=== PATIENT | female | born 1950 | race Caucasian/White ===

== ENCOUNTER → 2023-06-16 | Outpatient (CLI) | payer MEDICARE, SELFPAY ==
--- NOTE | 2023-06-16 10:36 | ECHODONC_ITS ---
Reason For Study: Breast CA Procedure This was a 2D Doppler, Color Flow transthoracic echocardiogram. Myocardial strain analysis was performed in this exam to aid in the assessment of cardiac function. Exam performed in department. Left Ventricle Normal LV size. Left ventricular systolic function is normal. The estimated ejection fraction is 60 %. Stage 1 diastolic dysfunction. No regional wall motion abnormalities noted. Right Ventricle Normal RV size. Normal systolic function. Atria Normal left atrium. Normal right atrium. Mitral Valve Normal mitral valve. Tricuspid Valve Normal tricuspid valve. Mild tricuspid valve insufficiency. Pulmonary artery systolic pressure is 23 mmHg. Aortic Valve Normal aortic valve. Pulmonic Valve Normal pulmonic valve. Great Vessels Normal aortic root. The pulmonary is not well visualized. Normal inferior vena cava. Pericardium/Pleural No pericardial effusion. MMode/2D Measurements & Calculations LVIDd: 3.3 cm IVSd: 0.97 cm Ao root diam: 2.8 cm LVIDs: 2.0 cm LVPWd: 0.87 cm RVDd: 3.5 cm FS: 39.1 % LAV(MOD-bp): 39.0 ml LVAd ap4: 21.6 cm2 LVAd ap2: 23.0 cm2 LAV(MOD-bp) Indexed: 20.1 ml/m2 LVLd ap4: 7.4 cm LVLd ap2: 7.9 cm LAV(MOD-sp2): 36.0 ml EDV(MOD-sp4): 52.2 ml EDV(MOD-sp2): 55.5 ml LAV(MOD-sp4): 40.5 ml EDV(sp4-el): 53.5 ml EDV(sp2-el): 56.8 ml LVAs ap4: 12.0 cm2 LVAs ap2: 11.9 cm2 LVLs ap4: 6.0 cm LVLs ap2: 6.9 cm ESV(MOD-sp4): 19.7 ml ESV(MOD-sp2): 17.6 ml ESV(sp4-el): 20.1 ml ESV(sp2-el): 17.4 ml EF(MOD-sp4): 62.2 % EF(MOD-sp2): 68.3 % EF(sp4-el): 62.5 % SV(MOD-sp4): 32.5 ml SV(MOD-sp2): 37.9 ml SV(sp4-el): 33.4 ml LA dimension(2D): 3.5 cm LA A4 area: 15.6 cm2 RA A4 area: 11.8 cm2 TAPSE: 1.7 cm Time Measurements MV dec time: 0.18 sec Doppler Measurements & Calculations MV E max carlyle: 95.1 cm/sec Lat Peak E' Carlyle: 11.4 cm/sec Med Peak E' Carlyle: 7.1 cm/sec MV A max carlyle: 99.7 cm/sec E/E' lat: 8.3 E/E' med: 13.4 MV E/A: 0.95 MV dec slope: 541.3 cm/sec2 Ao V2 max: 143.8 cm/sec LV V1 max: 96.8 cm/sec Ao max P.3 mmHg LV V1 max P.7 mmHg PA V2 max: 99.9 cm/sec TR max carlyle: 218.2 cm/sec TR max P.1 mmHg ECHO/ONC Echo Complete Interpretation Summary Normal LV size. Left ventricular systolic function is normal. The estimated ejection fraction is 60 %. Stage 1 diastolic dysfunction. The global longitudinal strain is normal. The global longitudinal strain = -22 % (normal). Ordering Physician: Denzel Sharma Referring Physician: Robby Elizabeth Performed By: Daphne Coon RDCS
== END | disposition home or self-care (01) ==
LOC: CVS 10:34
PROVIDERS: PCP Family Medicine; Referring Provider Internal Medicine Medical Oncology; Visit Provider Internal Medicine Medical Oncology
DX: Z01.818 Encounter for other preprocedural examination (principal)
CPT/HCPCS: 93306; 93356

== ENCOUNTER 2023-06-24 05:44 | Day surgery (SDC) | payer MEDICARE, SELFPAY ==
--- OUTSIDE RECORDS SUMMARY | 2023-06-24 05:47 | XMS RPT_ITS | CCD ---
Author Name Unknown Address [id number] [place] [address] Organization [facility] Care Team Providers Care Brick Paver Name Role Phone Jayda Elizabeth Unavailable Unavailable Jayda Elizabeth Unavailable Unavailable Jayda Elizabeth Unavailable Unavailable Unavailable Jayda Elizabeth MD Primary Care Provider Glenn, Dr. Jayda Toney Primary Care Unavailab tanner Elizabeth, Dr. Jayda Toney Attending Unavailab tanner Elizabeth, Dr. Jayda Toney Primary Care Unavailab tanner Elizabeth, Dr. Jayda Toney Attending Unavailab tanner Elizabeth, Dr. Jayda Toney Primary Care Unavailab tanner Elizabeth, Dr. Jayda Toney Attending Unavailab tanner Elizabeth, Dr. Jayda Toney Primary Care Unavailab tanner Elizabeth, Dr. Jayda Toney Attending Unavailab tanner Elizabeth, Dr. Jayda Toney Attending Unavailab tanner Elizabeth, Dr. Jayda Toney Primary Care Unavailab tanner Elizabeth, Dr. Jayda Toney Primary Care Unavailab tanner Reis, Dr. Anna Toney Attending Unavailsharonda Elizabeth, Dr. Jayda Toney Primary Care Unavailab tanner Reis, Dr. Anna Toney Attending Unavailsharonda Elizabeth, Dr. Jayda Toney Primary Care Unavailab tanner Reis, Dr. Anna Toney Attending Unavailsharonda Elizabeth, Dr. Jayda Toney Primary Care Unavailab tanner Reis, Dr. Anna Toney Attending Unavailsharonda Elizabeth, Dr. Jayda Toney Primary Care Unavailab tanner Elizabeth, Dr. Jayda Toney Attending Unavailab tanner Elizabeth, Dr. Jayda Toney Primary Care Unavailab tanner Elizabeth, Dr. Jayda Toney Attending Unavailab tanner Elizabeth, Dr. Jayda Toney Primary Care Unavailab le Glenn, Dr. Jayda Toney Attending Unavailab le Glenn, Dr. Jayda Toney Primary Care Unavailab le Glenn, Dr. Jayda Toney Attending Unavailab le Glenn, Dr. Jayda Toney Primary Care Unavailab le Glenn, Dr. Jayda Toney Attending Unavailab le Glenn, Dr. Jayda Toney Primary Care Unavailab le Glenn, Dr. Jayda Toney Attending Unavailab le Glenn, Dr. Jayda Toney Primary Care Unavailab le Glenn, Dr. Jayda Toney Attending Unavailab le Glenn, Dr. Jayda Toney Primary Care Unavailab le Glenn, Dr. Jayda oTney Attending Unavailab le GLENN, JAYDA Primary Care Unavailable DERRICK, ANNA L Referring Unavailable DERRICK, ANNA L Admitting Unavailable DERRICK, ANNA L Attending Unavailable GLENN, JAYDA Primary Care Unavailable DERRICK, ANNA L Referring Unavailable DILCIA, LENKA Attending Unavailable GLENN, JAYDA Primary Care Unavailable SELF, SELF Referring Unavailable GLENN, JAYDA Primary Care Unavailable DILCIA, LENKA Attending Unavailable DERRICK, ANNA L Attending Unavailable GLENN, JAYDA Primary Care Unavailable DERRICK, ANNA L Referring Unavailable GLENN, JAYDA Primary Care Unavailable DERRICK, ANNA L Referring Unavailable DERRICK, ANNA L Attending Unavailable DERRICK, ANNA L Referring Unavailable DERRICK, ANNA L Attending Unavailable GLENN, JAYDA Primary Care Unavailable DERRICK, ANNA L Referring Unavailable DILCIA, LENKA Attending Unavailable GLENN, JAYDA Primary Care Unavailable Glenn, Dr. Jayda Toney Attending Unavailab le Glenn, Dr. Jayda Toney Primary Care Unavailab le Glenn, Dr. Jayda Toney Referring Unavailab le Glenn, Dr. Jayda Toney Attending Unavailab le Glenn, Dr. Jayda Toney Primary Care Unavailab le Glenn, Dr. Jayda Toney Referring Unavailab le Glenn, Dr. Jayda Toney Attending Unavailab le Glenn, Dr. Jayda Toney Primary Care Unavailab le Glenn, Dr. Jayda Toney Referring Unavailab Jayda Fair MD Primary Care Provider Adin Pascual MD, Jenny Rooney Unavailable JAYDA ELIZABETH Attending Unavailable JAYDA ELIZABETH Primary Care Unavailable JAYDA ELIZABETH Attending Unavailable JAYDA ELIZABETH Primary Care Unavailable Jayda Elizabeth MD Primary Care Provider GLENN, JAYDA L Referring Unavailable GLENN, JAYAD L Primary Care Unavailable GLENN, JAYDA L Referring Unavailable GLENN, JAYDA L Primary Care Unavailable GLENN, JAYDA L Referring Unavailable GLENN, JAYDA L Primary Care Unavailable NAHEED MAXWELL Referring Unavailable GLENN, JAYDA L Primary Care Unavailable GLENN, JAYDA L Primary Care Unavailable NAHEED MAXWELL B Attending Unavailable NAHEED MAXWELL B Referring Unavailable GLENN, JAYDA L Primary Care Unavailable NAHEED MAXWELL B Attending Unavailable GLENN, JAYDA L Primary Care Unavailable GLENN, JAYDA L Referring Unavailable GLENN, JAYDA L Primary Care Unavailable ROSA NAHEED B Referring Unavailable GLENN, JAYDA L Primary Care Unavailable ROSA NAHEED B Referring Unavailable GLENN, JAYDA L Primary Care Unavailable ROSA NAHEED B Admitting Unavailable NAHEED MAXWELL Attending Unavailable GLENN, JAYDA L Primary Care Unavailable ROSA NAHEED B Referring Unavailable GLENN, JAYDA L Primary Care Unavailable Allergies Allergy Classification Reported Allergen(s) Allergy Type Date of Onset Reaction(s) Facility Adhesive Tape (11 sources) Adhesive Tape Substance Allergy [facility] Work Phone: Opioid Agonists (11 sources) Codeine; Translations: [codeine] Drug Allergy Vomiting [facility] Work Phone: (20 sources) Codeine; Translations: [codeine] Drug Allergy 3 Vomiting, Nausea and Vomiting, Other [facility] (20 sources) Adhesive Tape Allergy to substance (finding) [facility] Work Phone: (2 sources) Skin Adhesives Propensity to adverse reactions to drug 3 Blisters [facility] (19 sources) Latex; Translations: [LATEX] Propensity to adverse reactions to drug 3 Other [facility] (4 sources) *Adhesive Tape Propensity to adverse reactions 3 [facility] (15 sources) Adhesive Tape-Silicones; Translations: [ADHESIVE TAPE-SILICONES] Propensity to adverse reactions 3 Unknown, Rash [facility] Medications Current Medications Medication Drug Class(es) Dates Sig (Normalized) Sig (Original) acetaminophen 325 mg oral tablet (20 sources) Start: 05-11-2023 take 1 tablet by mouth every four hours as needed acetaminophen (Tylenol) tablet 650 mg Completed/Discontinued Medications Medication Drug Class(es) Dates Sig (Normalized) Sig (Original) ascorbic acid 1000 mg extended release oral tablet (20 sources) Vitamin C Vitamin C ER 100 0 MG TBCR Quantity: 0 Refills: 0 Ordered: 10-Mar-2021 DO Active Problems Active Problems Problem Classification Problem Date Documented Da te Episodic/Chronic Cancer of breast (20 sources) Malignant neoplasm of lower-outer quadrant of female breast; Translations: [Malignant neoplasm of lower-outer quadrant of right female breast] Onset: 04-14-2023 04-20-2023 Chronic Deficiency and other anemia (1 source) Anemia; Translations: [Anemia, unspecified] Episodic Deficiency and other anemia (20 sources) Iron deficiency anemia; Translations: [Iron deficiency anemia, unspecified] Episodic Diabetes mellitus with complications (20 sources) Polyneuropathy due to type 2 diabetes mellitus; Translations: [Diabetes with neurological manifestations, type II or unspecified type, not stated as uncontrolled] Onset: 08-07-2022 08-07-2022 Chronic Diabetes mellitus without complication (20 sources) Type 2 diabetes mellitus; Translations: [Diabetes mellitus without mention of complication, type II or unspecified type, not stated as uncontrolled] Onset: 08-07-2022 08-07-2022 Chronic Disorders of lipid metabolism (20 sources) Hyperlipidemia; Translations: [Other and unspecified hyperlipidemia] Onset: 08-07-2022 03-01-2023 Chronic Essential hypertension (20 sources) Benign essential hypertension; Translations: [Benign essential hypertension] Onset: 08-07-2022 08-07-2022 Chronic Genitourinary symptoms and ill-defined conditions (20 sources) Urinary incontinence; Translations: [Urinary incontinence, unspecified] Onset: 08-07-2022 08-07-2022 Chronic Genitourinary symptoms and ill-defined conditions (20 sources) Dysuria; Translations: [Dysuria] Episodic Immunizations and screening for infectious disease (20 sources) Patient encounter status; Translations: [Other specified vaccination] Onset: 03-01-2023 03-01-2023 Episodic Joint disorders and dislocations; trauma-related (5 sources) Tear of medial meniscus of knee; Translations: [Other tear of medial meniscus, current injury, right knee, initial encounter] Onset: 06-22-2022 Episodic Menopausal disorders (20 sources) Menopausal syndrome; Translations: [Symptomatic menopausal or female climacteric states] Onset: 10-13-2021 Chronic Nonmalignant breast conditions (14 sources) Lump in right breast; Translations: [Unspecified lump in the right breast, unspecified quadrant] Onset: 03-23-2023 03-23-2023 Episodic Osteoarthritis (20 sources) Osteoarthritis of right knee joint; Translations: [Osteoarthrosis, localized, primary, lower leg] Onset: 06-22-2022 Chronic Other gastrointestinal disorders (5 sources) Chronic constipation; Translations: [Constipation, unspecified] Episodic Other lower respiratory disease (20 sources) Dyspnea; Translations: [Shortness of breath] Episodic Other nutritional; endocrine; and metabolic disorders (7 sources) Obesity; Translations: [Obesity, unspecified] Chronic Other nutritional; endocrine; and metabolic disorders (20 sources) Severe obesity; Translations: [Morbid obesity] Onset: 08-07-2022 08-07-2022 Chronic Other nutritional; endocrine; and metabolic disorders (2 sources) Morbid (severe) obesity due to excess calories; Translations: [Morbid (severe) obesity due to excess calories (CMS/HCC)] Onset: 08-07-2022 Chronic Other nutritional; endocrine; and metabolic disorders (2 sources) Body mass index (BMI) 35.0-35.9, adult; Translations: [Body mass index (BMI) 35.0-35.9, adult] Onset: 08-07-2022 Chronic Other screening for suspected conditions (not mental disorders or infectious disease) (14 sources) Encounter for screening mammogram for malignant neoplasm of breast; Translations: [Encounter for screening for osteoporosis] Onset: 10-13-2021 Episodic Other skin disorders (20 sources) Actinic keratosis; Translations: [Actinic keratosis] Episodic Residual codes; unclassified (3 sources) History of arthroscopy of knee joint; Translations: [Other specified postprocedural states] Episodic Residual codes; unclassified (2 sources) Other specified postprocedural states; Translations: [Other specified postprocedural states] Onset: 11-08-2022 Episodic Residual codes; unclassified (6 sources) Estrogen receptor negative status [ER-]; Translations: [Estrogen receptor negative status (ER-)] Onset: 04-14-2023 Episodic Spondylosis; intervertebral disc disorders; other back problems (20 sources) Chronic low back pain; Translations: [Lumbago] Episodic Past or Other Problems Problem Classification Problem Date Documented Da te Episodic/Chronic Abdominal hernia (20 sources) Hiatal hernia; Translations: [Diaphragmatic hernia without mention of obstruction or gangrene] Onset: 09-06-2022 09-07-2022 Episodic Nonspecific chest pain (15 sources) Chest pain; Translations: [Chest pain, unspecified] Onset: 08-07-2022 Resolved: 09-06-2022 09-06-2022 Episodic Other non-traumatic joint disorders (20 sources) Pain in left knee; Translations: [Chronic pain of left knee] Onset: 08-07-2022 Resolved: 09-07-2022 09-07-2022 Episodic Other non-traumatic joint disorders (15 sources) Tenderness on medial joint line of knee; Translations: [Pain in joint, lower leg] Onset: 08-07-2022 08-07-2022 Episodic Other non-traumatic joint disorders (7 sources) Pain in right knee; Translations: [Pain in joint, lower leg] Onset: 06-22-2022 Episodic Other non-traumatic joint disorders (1 source) Effusion, right knee; Translations: [Effusion, right knee] Onset: 02-23-2022 Episodic Other skin disorders (17 sources) Dystrophia unguium; Translations: [Other specified diseases of nail] Onset: 09-07-2022 09-07-2022 Episodic Unclassified (11 sources) Onset: 09-06-2022 09-06-2022 Results Test Name Value Interpretation Reference Range Facil ity Vital Signs Date Time Vital Sign Value Performing Clinician Facility 06-02-2023 11:[id number] Body height 161.3 cm Naheed Maxwell DO Work Phone: [facility] 06-02-2023 11:28-050 Body mass index (BMI) [Ratio] 34.18 kg/m2 Naheed Maxwell DO Work Phone: [facility] 06-02-2023 [id number] Body weight 88.91 kg Naheed Maxwell DO Work Phone: [facility] 06-02-2023 11:28-0500 Respiratory rate 16 /min Naheed Maxwell DO Work Phone: [facility] 05-11-2023 15:50-0500 Body temperature 98.1 [degF] Naheed Maxwell DO Work Phone: [facility] 05-11-2023 15:50-0500 Diastolic blood pressure 85 mm[Hg] Naheed Maxwell DO Work Phone: [facility] 05-11-2023 15:50-0500 Heart rate 76 /min Naheed Maxwell DO Work Phone: [facility] 05-11-2023 15:50-0500 Respiratory rate 16 /min Naheed Maxwell DO Work Phone: [facility] 05-11-2023 15:50-0500 SaO2% (BldA) [Mass fraction] 97 % Naheed Maxwell DO Work Phone: [facility] 05-11-2023 15:50-0500 Systolic blood pressure 158 mm[Hg] Naheed Maxwell DO Work Phone: [facility] 05-11-2023 08:43-0500 Body height 160 cm Naheed Maxwell DO Work Phone: [facility] 05-11-2023 08:43-0500 Body mass index (BMI) [Ratio] 34.54 kg/m2 Naheed Maxwell DO Work Phone: [facility] 05-11-2023 08:43-0500 Body weight 88.45 kg Naheed Maxwell DO Work Phone: [facility] 03-01-2023 13:24-0400 Body height 162.3 cm Jayda Elizabeth MD [facility] 03-01-2023 13:24-0400 Body mass index (BMI) [Ratio] 34.27 kg/m2 Jayda Elizabeth MD [facility] 03-01-2023 13:24-0400 Body weight 90.27 kg Jayda Elizabeth MD [facility] 03-01-2023 13:24-0400 Diastolic blood pressure 80 mm[Hg] Jayda Elizabeth MD [facility] 03-01-2023 13:24-0400 Heart rate 72 /min Jayda Elizabeth MD [facility] 03-01-2023 13:24-0400 SaO2% (BldA) [Mass fraction] 98 % Jayda Elizabeth MD [facility] 03-01-2023 13:24-0400 Systolic blood pressure 122 mm[Hg] Jayda Elizabeth MD [facility] 11-08-2022 13:07-0400 Body height 161.3 cm Lenka Ha STUDENT FINANCE SPECIALIST-CALL CENTER SUPPORT REPRESENTATIVE Work Phone: [facility] 11-08-2022 13:07-0400 Body mass index (BMI) [Ratio] 34.18 kg/m2 Lenka Ha STUDENT FINANCE SPECIALIST-CALL CENTER SUPPORT REPRESENTATIVE Work Phone: [facility] 11-08-2022 13:07-0400 Body temperature 98.1 [degF] Lenka Joneser STUDENT FINANCE SPECIALIST-CALL CENTER SUPPORT REPRESENTATIVE Work Phone: [facility] 11-08-2022 13:07-0400 Body weight 88.91 kg Lenkaosito Joneser STUDENT FINANCE SPECIALIST-CALL CENTER SUPPORT REPRESENTATIVE Work Phone: [facility] 09-28-2022 13:12-0400 Body height 161.3 cm Lenka Ha STUDENT FINANCE SPECIALIST-CALL CENTER SUPPORT REPRESENTATIVE Work Phone: [facility] 09-28-2022 13:12-0400 Body mass index (BMI) [Ratio] 34.18 kg/m2 Lenka Dilcia STUDENT FINANCE SPECIALIST-CALL CENTER SUPPORT REPRESENTATIVE Work Phone: [facility] 09-28-2022 13:12-0400 Body temperature 98.01 [degF] Lenka Joneser STUDENT FINANCE SPECIALIST-CALL CENTER SUPPORT REPRESENTATIVE Work Phone: [facility] 09-28-2022 13:12-0400 Body weight 88.91 kg Lenka Ha STUDENT FINANCE SPECIALIST-CALL CENTER SUPPORT REPRESENTATIVE Work Phone: [facility] 09-15-2022 10:35-0400 Diastolic blood pressure 63 mm[Hg] Anna Reis MD Work Phone: [facility] 09-15-2022 10:35-0400 Heart rate 70 /min Anna Reis MD Work Phone: [facility] 09-15-2022 10:35-0400 Respiratory rate 18 /min Anna Reis MD Work Phone: [facility] 09-15-2022 10:35-0400 SaO2% (BldA) [Mass fraction] 95 % Anna Reis MD Work Phone: [facility] 09-15-2022 10:35-0400 Systolic blood pressure 120 mm[Hg] Anna Reis MD Work Phone: [facility] 09-15-2022 09:35-0400 Body temperature 97 [degF] Anna Reis MD Work Phone: [facility] 09-15-2022 06:59-0400 Body height 161.3 cm Anna Reis MD Work Phone: [facility] 09-15-2022 06:59-0400 Body mass index (BMI) [Ratio] 34.18 kg/m2 Anna Reis MD Work Phone: [facility] 09-15-2022 06:59-0400 Body weight 88.91 kg Anna Reis MD Work Phone: [facility] 09-13-2022 12:58-0400 Body height 162.6 cm Lenka Ha APRN-FRANNY Work Phone: [facility] 09-13-2022 12:58-0400 Body mass index (BMI) [Ratio] 33.81 kg/m2 Lenka Ha APRN-CALL CENTER SUPPORT REPRESENTATIVE Work Phone: [employer] [facility] 09-13-2022 12:58-0400 Body temperature 97.81 [degF] Lenka Ha APRN-CALL CENTER SUPPORT REPRESENTATIVE Work Phone: [facility] 09-13-2022 12:58-0400 Body weight 89.36 kg Lenka Ha STUDENT FINANCE SPECIALIST-CALL CENTER SUPPORT REPRESENTATIVE Work Phone: [facility] 09-13-2022 12:58-0400 Diastolic blood pressure 70 mm[Hg] Lenka Ha STUDENT FINANCE SPECIALIST-CALL CENTER SUPPORT REPRESENTATIVE Work Phone: [facility] 09-13-2022 12:58-0400 Systolic blood pressure 120 mm[Hg] Lenka Ha STUDENT FINANCE SPECIALIST-CALL CENTER SUPPORT REPRESENTATIVE Work Phone: [facility] 08-26-2022 15:08-0500 Body height 163.2 cm Jayda L Glenn Work Phone: [facility] Work Phone: 08-26-2022 15:08-0500 Body mass index (BMI) [Ratio] 33.63 kg/m2 Jayda L Glenn Work Phone: [facility] Work Phone: 08-26-2022 15:08-0500 Body surface area Derived from formula 1.95 m2 Jayda L Glenn Work Phone: [facility] Work Phone: 08-26-2022 15:08-0500 Body weight 89.56 kg Jayda L Glenn Work Phone: [facility] Work Phone: 08-26-2022 15:08-0500 Diastolic blood pressure 74 mm[Hg] Jayda L Glenn Work Phone: [facility] Work Phone: 08-26-2022 15:08-0500 Heart rate 70 /min Jayda L Glenn Work Phone: [facility] Work Phone: 08-26-2022 15:08-0500 Systolic blood pressure 120 mm[Hg] Jayda L Glenn Work Phone: [facility] Work Phone: 08-04-2022 10:36-0500 Body height 162.6 cm Anna Reis MD Work Phone: [facility] 08-04-2022 10:36-0500 Body mass index (BMI) [Ratio] 34.16 kg/m2 Anna Reis MD Work Phone: [facility] 08-04-2022 10:36-0500 Body temperature 97.59 [degF] Anna Reis MD Work Phone: [facility] 08-04-2022 10:36-0500 Body weight 90.27 kg Anna Reis MD Work Phone: [facility] 06-08-2022 11:12-0500 Body height 163.2 cm Jayda L Glenn Work Phone: [facility] Work Phone: 06-08-2022 11:12-0500 Body mass index (BMI) [Ratio] 33.96 kg/m2 Jayda L Glenn Work Phone: [facility] Work Phone: 06-08-2022 11:12-0500 Body surface area Derived from formula 1.96 m2 Jayda L Glenn Work Phone: [facility] Work Phone: 06-08-2022 11:12-0500 Body weight 90.44 kg Jayda L Glenn Work Phone: [facility] Work Phone: 06-08-2022 11:12-0500 Diastolic blood pressure 84 mm[Hg] Jayda L Glenn Work Phone: [facility] Work Phone: 06-08-2022 11:12-0500 Heart rate 80 /min Jayda L Glenn Work Phone: [facility] Work Phone: 06-08-2022 11:12-0500 Systolic blood pressure 120 mm[Hg] Jayda L Glenn Work Phone: [facility] Work Phone: 03-09-2022 16:03-0400 Body height 163.2 cm Jayda L Glenn Work Phone: [facility] Work Phone: 03-09-2022 16:03-0400 Body mass index (BMI) [Ratio] 35.05 kg/m2 Jayda L Glenn Work Phone: [facility] Work Phone: 03-09-2022 16:03-0400 Body surface area Derived from formula 1.99 m2 Jayda L Glenn Work Phone: [facility] Work Phone: 03-09-2022 16:03-0400 Body weight 93.35 kg Jayda L Glenn Work Phone: [facility] Work Phone: 03-09-2022 16:03-0400 Diastolic blood pressure 88 mm[Hg] Jayda L Glenn Work Phone: [facility] Work Phone: 03-09-2022 16:03-0400 Heart rate 78 /min Jayda L Glenn Work Phone: [facility] Work Phone: 03-09-2022 16:03-0400 Systolic blood pressure 120 mm[Hg] Jayda L Glenn Work Phone: [facility] Work Phone: 02-23-2022 11:16-0400 Body height 163.2 cm Jayda L Glenn Work Phone: [facility] Work Phone: 02-23-2022 11:16-0400 Body mass index (BMI) [Ratio] 35.13 kg/m2 Jayda L Glenn Work Phone: [facility] Work Phone: 02-23-2022 11:16-0400 Body surface area Derived from formula 1.99 m2 Jayda L Glenn Work Phone: [facility] Work Phone: 02-23-2022 11:16-0400 Body weight 93.57 kg Jayda L Glenn Work Phone: [facility] Work Phone: 02-23-2022 11:16-0400 Diastolic blood pressure 88 mm[Hg] Jayda L Glenn Work Phone: [facility] Work Phone: 02-23-2022 11:16-0400 Heart rate 63 /min Jayda L Glenn Work Phone: [facility] Work Phone: 02-23-2022 11:16-0400 Systolic blood pressure 136 mm[Hg] Jayda L Glenn Work Phone: [facility] Work Phone: 05-04-2021 11:34-0500 Body height 163.2 cm Jayda L Glenn Work Phone: [facility] Work Phone: 05-04-2021 11:34-0500 Body mass index (BMI) [Ratio] 34.91 kg/m2 Jayda L Glenn Work Phone: [facility] Work Phone: 05-04-2021 11:34-0500 Body surface area Derived from formula 1.98 m2 Jayda L Glenn Work Phone: [facility] Work Phone: 05-04-2021 11:34-0500 Body weight 92.98 kg Jayda L Glenn Work Phone: [facility] Work Phone: 05-04-2021 11:34-0500 Diastolic blood pressure 80 mm[Hg] Jayda L Glenn Work Phone: [facility] Work Phone: 05-04-2021 11:34-0500 Heart rate 72 /min Jayda L Glenn Work Phone: [facility] Work Phone: 05-04-2021 11:34-0500 Systolic blood pressure 128 mm[Hg] Jayda L Glenn Work Phone: [facility] Work Phone: 04-24-2021 08:34-0400 Body height 163.19 cm Jayda L Glenn Work Phone: [facility] Work Phone: 04-24-2021 08:34-0400 Body mass index (BMI) [Ratio] 35.25 kg/m2 Jayda L Glenn Work Phone: [facility] Work Phone: 04-24-2021 08:34-0400 Body surface area Derived from formula 1.99 m2 Jayda L Glenn Work Phone: [facility] Work Phone: 04-24-2021 08:34-0400 Body weight 93.9 kg Jayda L Glenn Work Phone: [facility] Work Phone: 04-24-2021 08:34-0400 Diastolic blood pressure 78 mm[Hg] Jayda L Glenn Work Phone: [facility] Work Phone: 04-24-2021 08:34-0400 Heart rate 74 /min Jayda L Glenn Work Phone: [facility] Work Phone: 04-24-2021 08:34-0400 Systolic blood pressure 124 mm[Hg] Jayda L Glenn Work Phone: -[facility] Work Phone: 04-02-2021 14:24-0400 Body height 163.19 cm Jayda L Glenn Work Phone: -[facility] Work Phone: 04-02-2021 14:24-0400 Body mass index (BMI) [Ratio] 34.57 kg/m2 Jayda L Glenn Work Phone: -[facility] Work Phone: 04-02-2021 14:24-0400 Body surface area Derived from formula 1.97 m2 Jayda L Glenn Work Phone: -[facility] Work Phone: 04-02-2021 14:24-0400 Body weight 92.08 kg Jayda L Glenn Work Phone: [facility] Work Phone: 04-02-2021 14:24-0400 Diastolic blood pressure 84 mm[Hg] Jayda L Glenn Work Phone: -[facility] Work Phone: 04-02-2021 14:24-0400 Heart rate 70 /min Jayda L Glenn Work Phone: [facility] Work Phone: 04-02-2021 14:24-0400 Systolic blood pressure 130 mm[Hg] Jayda L Glenn Work Phone: [facility] Work Phone: 03-10-2021 13:44-0400 Body height 163.19 cm Jayda L Glenn Work Phone: [facility] Work Phone: 03-10-2021 13:44-0400 Body mass index (BMI) [Ratio] 34.48 kg/m2 Jayda L Glenn Work Phone: [facility] Work Phone: 03-10-2021 13:44-0400 Body surface area Derived from formula 1.97 m2 Jayda L Glenn Work Phone: [facility] Work Phone: 03-10-2021 13:44-0400 Body weight 91.83 kg Jayda L Glenn Work Phone: [facility] Work Phone: 03-10-2021 13:44-0400 Diastolic blood pressure 80 mm[Hg] Jayda L Glenn Work Phone: [facility] Work Phone: 03-10-2021 13:44-0400 Heart rate 72 /min Jayda L Glenn Work Phone: [facility] Work Phone: 03-10-2021 13:44-0400 Systolic blood pressure 134 mm[Hg] Jayda L Glenn Work Phone: [facility] Work Phone: 12-30-2020 13:43-0400 Body height 163.2 cm Jayda L Glenn Work Phone: [facility] Work Phone: 12-30-2020 13:43-0400 Body mass index (BMI) [Ratio] 34.93 kg/m2 Jayda L Glenn Work Phone: [facility] Work Phone: 12-30-2020 13:43-0400 Body surface area Derived from formula 1.98 m2 Jayda L Glenn Work Phone: [facility] Work Phone: 12-30-2020 13:43-0400 Body weight 93.03 kg Jayda L Glenn Work Phone: [facility] Work Phone: 12-30-2020 13:43-0400 Diastolic blood pressure 80 mm[Hg] Jayda Pierceer Work Phone: [facility] Work Phone: 12-30-2020 13:43-0400 Heart rate 82 /min Jaydatoño Pierceer Work Phone: [facility] Work Phone: 12-30-2020 13:43-0400 Systolic blood pressure 120 mm[Hg] Jayda Pierceer Work Phone: [facility] Work Phone: 10-27-2020 10:16-0400 Body height 163.2 cm Jayda L Glenn [facility] Work Phone: 10-27-2020 10:16-0400 Body mass index (BMI) [Ratio] 35.61 kg/m2 Jayda Pierceer Work Phone: [facility] Work Phone: 10-27-2020 10:16-0400 Body surface area Derived from formula 2 m2 Jayda Pierceer Work Phone: [facility] Work Phone: 10-27-2020 10:16-0400 Body temperature 97.3 [degF] Jayda Pierceer Work Phone: [facility] Work Phone: 10-27-2020 10:16-0400 Body weight 94.84 kg Jayda L Glenn Work Phone: [facility] Work Phone: 10-27-2020 10:16-0400 Diastolic blood pressure 88 mm[Hg] Jayda L Glenn Work Phone: [facility] Work Phone: 10-27-2020 10:16-0400 Heart rate 96 /min Jayda Elizabeth Work Phone: [facility] Work Phone: 10-27-2020 10:16-0400 Systolic blood pressure 130 mm[Hg] Jayda Elizabeth Work Phone: [facility] Work Phone: Encounters Encounter Date Encounter Type Care Provider Facility Start: 06-02-2023 End: 06-02-2023 ambulatory NAHEED MAXWELL [facility] Start: 06-02-2023 End: 06-02-2023 Postop follow up visit related to original px Naheed Maxwell DO Work Phone: [facility] [place], [place] Procedures Date Procedure Procedure Detail Performing Clinician Start: 05-11-2023 DISCHARGE PATIENT NAHEED MAXWELL Start: 05-11-2023 FOLLOW UP WITH PROVIDER NAHEED MAXWELL Start: 05-11-2023 ADULT DISCHARGE DIET NAHEED MAXWELL Start: 05-11-2023 DISCHARGE ACTIVITY NAHEED MAXWELL Start: 05-11-2023 DISCHARGE INSTRUCTIONS NAHEED MAXWELL Start: 05-11-2023 NOTIFY PROVIDER (DO NOT PROMPT FOR PARAMETERS) NAHEED MAXWELL Start: 05-11-2023 BI RAD BREAST EXAM SPECIMEN NAHEED GROVES ON Start: 05-11-2023 SURGICAL PATHOLOGY EXAM NAHEED MAXWELL Start: 05-11-2023 Radiological examination surgical specimen Naheed Maxwell DO Work Phone: Start: 05-11-2023 NM INJECTION ONLY FOR SENTINEL NODE BIOPSY NO SCAN PERFORMED NAHEED MAXWELL Start: 05-11-2023 Glucose [Mass/volume] in Serum or Plasma NAHEED MAXWELL Start: 05-11-2023 PLACE IN OUTPATIENT/HOSPITAL AMBULATORY SURGERY NAHEED MAXWELL Start: 05-11-2023 PULSE OXIMETRY, SPOT NAHEED MAXWELL Start: 05-11-2023 Inj radioactive tracer for id of sentinel node Naheed Maxwell DO Work Phone: Start: 05-11-2023 Glucose quantitative blood xcpt reagent strip Naheed Maxwell DO Work Phone: Start: 05-11-2023 PULSE OXIMETRY, SPOT Naheed Samantha Maxwell DO Work Phone: Start: 04-20-2023 CBC panel - Blood by Automated count JAYDA ELIZABETH Start: 04-20-2023 Comprehensive metabolic 2000 panel - Serum or Plasma JAYDA ELIZABETH Start: 04-20-2023 ECG 12-LEAD JAYDA ELIZABETH Start: 04-20-2023 Ecg routine ecg w/least 12 lds trcg only w/o i&r Naheed Maxwell DO Work Phone: Start: 04-14-2023 BI BREAST BIOPSY CLIP IMAGING NAHEED MOON KARISN Start: 04-14-2023 BI US GUIDED BREAST LOCALIZATION RIGHT NAHEED ROSA Start: 04-14-2023 CASE REQUEST OPERATING ROOM NAHEED GROVES ON Start: 04-14-2023 MG Breast - unilateral Single view for clip placement Naheed Maxwell DO Work Phone: Start: 04-14-2023 Perq breast loc device placemt 1st lesio us imag Naheed Maxwell DO Work Phone: Start: 04-14-2023 BI US BREAST LIMITED RIGHT NAHEED MOONRAMAO N Start: 04-04-2023 Basic metabolic 2000 panel - Serum or Plasma JAYDA ELIZABETH Start: 04-01-2023 SURGICAL PATHOLOGY EXAM JAYDA ELIZABETH Start: 04-01-2023 BI MAMMO RIGHT POST BIOPSY CLIP JAYDA ELIZABETH Start: 04-01-2023 BI BREAST RIGHT CORE NEEDLE BIOPSY KATIE ELIZABETH Start: 04-01-2023 [facility] imhchem ea antibody manual Jayda Elizabeth MD Work Phone: Start: 04-01-2023 Diagnostic mammography computer-aided detcj uni Jayda Elizabeth MD Work Phone: Start: 04-01-2023 Bx breast needle core w/o imaging guidance spx Jayda Elizabeth MD Work Phone: Start: 03-29-2023 BI US BREAST LIMITED RIGHT JAYDA ELIZABETH Start: 03-01-2023 PNEUMOCOCCAL CONJUGATE VACCINE 20-VALENT IM JAYDA ELIZABETH Start: 09-15-2022 PHOTOGRAPHS, PROC/OR (SCANNED) Anna kramer MD Work Phone: Start: 08-19-2022 Lipid 1996 panel - Serum or Plasma Katie Elizabeth MD Start: 10-13-2021 Mammography Jayda Elizabeth MD Start: 04-15-2021 End: 04-15-2021 Colonoscopy Jaydatoño Elizabeth Work Phone: Start: 04-15-2021 Colonoscopy Jayda L Glenn Work Phone: section Jayda Pirece er Cholecystectomy Jayda Raysa r Colonoscopy Jayda Adams Glenn Work Phone: Esophagogastroduodenoscopy D ouglas Bryan Elizabeth Work Phone: Tonsillectomy and adenoidectomy Jayda Elizabeth Plan of Treatment Date Care Activity Detail Author Start: 04-15-2031 Screening for malignant neoplasm of colon [facility] Start: 04-20-2026 DTaP/Tdap/Td Vaccines (2 - Td or Tdap) DTaP/Tdap/Td Vaccines (2 - Td or Tdap) [facility] Start: 04-20-2026 Tetanus vaccination TETANUS [facility] Start: 03-05-2024 End: 08-03-2024 DBT Breast - bilateral diagnostic BI mammo bilateral diagnostic tomosynthesis Imaging Routine Malignant neoplasm of lower-outer quadrant of right breast of female, estrogen receptor negative (CMS/HCC) Expected: 03/05/2024, Expires: 08/03/2024 [facility] Service Area Work Phone: Immunizations Immunization Date Immunization Notes Care Provider Adriana goldman 05-24-2023 influenza, seasonal, injectable Naheed Maxwell DO Work Phone: [facility] 03-01-2023 Pneumococcal conjuga te vaccine, 20-valent (PREVNAR 20) [facility] Work Phone: 06-08-2022 influenza, injectabl e, quadrivalent, preservative free; Translations: [Flulaval Quadrivalent 0.5 ML Intramuscular Suspension Prefilled Syringe] Jayda Elizabeth Work Phone: [facility] Work Phone: Payers Date Payer Category Payer Medicare [id number] 2021 Private Health Insurance [id number] 1950 Unknown [id number] 2.16.8 40.1.633581.3.579.2.1068 1950 Unknown [id number] 2.16.8 40.1.228189.3.579.2.1068 1950 Unknown [id number] 2.16.8 40.1.069074.3.579.2.1068 1950 Unknown [id number] 2.16.8 40.1.215141.3.579.2.1068 1952 Unknown [id number] 2.16.8 40.1.990905.3.579.2.1068 1952 Unknown [id number] 2.16.8 40.1.658379.3.579.2.1068 1952 Unknown [id number] 2.16.8 40.1.746568.3.579.2.1068 1952 Unknown [id number] 2.16.8 40.1.421662.3.579.2.1068 1952 Unknown [id number] 2.16.8 40.1.177053.3.579.2.1068 1952 Unknown [id number] 2.16.8 40.1.791833.3.579.2.1068 1952 Unknown [id number] 2.16.8 40.1.887951.3.579.2.1068 1952 Unknown [id number] 2.16.8 40.1.591410.3.579.2.1068 1952 Unknown [id number] 2.16.8 40.1.142198.3.579.2.1069 1952 Unknown [id number] 2.16.8 40.1.289918.3.579.2.9 1952 Unknown [id number] 2.16.8 40.1.417102.3.579.2.1069 1952 Unknown [id number] 2.16.8 40.1.457209.3.579.2.1068 1952 Unknown [id number] 2.16.8 40.1.699324.3.579.2.1069 1952 Unknown [id number] 2.16.8 40.1.536624.3.579.2.983 1952 Unknown [id number] 2.16.8 40.1.889678.3.579.2.3 1952 Unknown [id number] 2.16.8 40.1.675763.3.579.2.3 1952 Unknown [id number] 2.16.8 40.1.055725.3.579.2.3 1952 Unknown [id number] 2.16.8 40.1.102559.3.579.2.983 1952 Unknown [id number] 2.16.8 40.1.183329.3.579.2.983 1952 Unknown [id number] 2.16.8 40.1.724505.3.579.2.983 1952 Unknown [id number] 2.16.8 40.1.518833.3.579.2.983 1952 Unknown [id number] 2.16. 840.1.694419.3.579.2.356 1952 Unknown [id number] 2.16. 840.1.814952.3.579.2.356 1952 Unknown [id number] 2.16. 840.1.526363.3.579.2.356 1952 Unknown [id number] 2.16.8 40.1.569886.3.579.2.1243 1952 Unknown [id number] 2.16.840 .1.792406.3.579.2.1243 1952 Unknown [id number] 2.16.84 0.1.800277.3.579.2.1242 1952 Unknown [id number] 2.16.84 0.1.674965.3.579.2.1242 1952 Unknown [id number] 2.16.84 0.1.569662.3.579.2.1242 1952 Unknown [id number] 2.16.84 0.1.171485.3.579.2.1242 1952 Unknown [id number] 2.16.84 0.1.833686.3.579.2.1244 1952 Unknown [id number] 2.16.84 0.1.686745.3.579.2.1242 1952 Unknown [id number] 2.16.84 0.1.428723.3.579.2.1242 1952 Unknown [id number] 2.16.84 0.1.931222.3.579.2.1242 1952 Unknown [id number] 2.16.84 0.1.233583.3.579.2.1242 1952 Unknown [id number] 2.16.84 0.1.608435.3.579.2.1242 1952 Unknown [id number] 2.16.84 0.1.712847.3.579.2.1242 1952 Unknown [id number] 2.16.84 0.1.508202.3.579.2.1242 Unknown [employer] Social History Date Type Detail Facility Start: 09-06-2022 End: 06-02-2023 Never a smoker Never a smoker [facility] Work Phone: Start: 08-04-2022 End: 09-06-2022 Tobacco smoking status NHIS Never smoked tobacco [facility] Start: 08-04-2022 End: 09-06-2022 Tobacco use and exposure Smokeless tobacco non-user [facility] Start: 08-04-2022 Alcohol intake Ex-drinker (finding) [facility] Start: 1950 Sex Assigned At Not on file A [facility] Start: 09-13-2022 End: 06-02-2023 Alcohol intake Current drinker of alcohol (finding) [facility] Start: 08-30-2022 Alcohol Comment rare [facility] Start: 09-06-2022 End: 06-02-2023 Tobacco use panel [facility] Work Phone: Start: 04-18-2023 Sexual orientation Heterosexual (fin ding) [facility] Start: 04-10-2023 End: 06-02-2023 Exposure to SARS-CoV-2 (event) Not sure [facility] Start: 05-11-2023 Alcohol Comment rarely [facility] Work Phone: Start: 1950 [facility]: Start: 05-11-2023 Gender identity Identifies as female gender (finding) [facility] Work Phone: NEGATED: Highlighted row - - [facility] Work Phone: Medical Equipment Procedure Code Equipment Code Equipment Origin al Text Equipment Identifier Dates OneTouch Delica Plus [id number] USE DIRECTED 2 times a day to check blood sugar Quantity: 100 Refills: 3 Jayda Elizabeth Start : 05-Jul-2019 Active Start: 07-05-2019 OneTouch Ultra B lue STRP USE 1 STRIP Twice daily Quantity: 100 Refills: 3 Jayda Elizabeth Start : 05-Jul-2019 Active Start: 07-05-2019 CHECK BLOOD SUGA R TWICE A DAY [id number] Start: 07-07-2022 in the morning a nd at bedtime. [id number] USE TO CHECK BLO OD SUGAR TWICE A DAY [id number] Start: 11-09-2022 Functional Status Date Assessment Result Facility NEGATED: Highlighted row Functional performance Functional status health issues are not documented Disease [facility] Work Phone: Mental Status Date Assessment Result Facility NEGATED: Highlighted row Cognitive function [Interpretation] Cognitive status health issues are not documented Disease [facility] Work Phone: Clinical Notes 10-04-2016 to 06-02-2023 Naheed Maxwell, DO - 06/02/2023 11:30 AM ESTDischarge InstructionsOp Note - Naheed Singh Maxwell, DO - 05/11/2023 11:17 AM ESTOp Note - Naheed Singh Maxwell, DO - 05/11/2023 11:17 AM ESTPatient Instructions Note Date & Type Note Facility 06-02-2023 History of Present illness Narrative BREAST SURGERY POST OPERATIVE VISIT Assessment/Plan 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 The cancer has been excised to negative margins with negative lymph nodes. Her surgical treatment is complete. I will refer to med/onc and rad/onc for recommendations for adjuvant treatment. She lives in [place] and prefers to seek care closer to home. Plans on following at [facility] in [place]. I will follow up at the time of next mammogram for imaging and clinical exam or sooner for any breast concerns. Subjective Hoa Alvares is a 72 y.o. female here for post op visit s/p right MS PM slnb. Date of surgery: 05/11/2023 Pathology Tumor size: 0.5cm Lymph nodes: 0/1 Margins: >2mm Staging: [id number] Objective Physical Exam General: Alert and oriented x 3. Mood and affect are appropriate. HEENT: EOMI, PERRLA. Neck: supple, no masses, no cervical adenopathy. Cardiovascular: no lower extremity edema. Pulmonary: breathing non labored on room air. GI: Abdomen soft, no masses. No hepatomegaly or splenomegaly. Lymph nodes: No supraclavicular or axillary adenopathy bilaterally. Right axillary incision healing well. Musculoskeletal: Full range of motion in the upper extremities bilaterally. Neuro: denies dizziness, tremors Breasts: The breasts were examined in both the seated and supine positions. RIGHT: The nipple is everted without nipple discharge. There are no skin changes, skin thickening, or dimpling. There are no masses palpated in the RIGHT breast. Right lateral incision healing well. LEFT: The nipple is everted without nipple discharge. There are no skin changes, skin thickening, or dimpling. There are no masses palpated in the LEFT breast. Radiology review: All images and reports were personally reviewed. Naheed Maxwell DO documented in this encounter [facility] Work Phone: 05-11-2023 Hospital Discharge instructions Naheed Maxwell DO - 05/11/2023 12:[address] MAXWELL'S BREAST SURGERY DISCHARGE INSTRUCTIONS Wound Care Do not remove the surgical bra for 24 hours. Wear the bra to bed to reduce movement. Your incisions are covered with steri strips. Leave these in place until they begin to lift from the edges. If steri strips are still in place after 10 days you may remove the strips. You can place ice on your breast as needed for pain relief (20 minutes on / 20 minutes off). Activity You may shower after 24 hours, but no baths, tubs, or swimming for 2 weeks. Do not lift anything more than 10lbs or do any strenuous activity until seen in post op. You may drive when you are not taking narcotic pain medication. Medication Take prescription narcotic medication for severe pain. Do not drive while taking narcotics. You may take acetaminophen (Tylenol), ibuprofen (Motrin), or naproxen (Aleve) for pain. When to Call Your wound is red, swollen, or has a lot of bleeding or drainage. Your pain is not controlled by the medicines. You have a fever or 100F or greater. Follow Up Dr. Maxwell will review your pathology results at your post-op visit. Please call the office at [phone] to make a follow up appointment. documented in this encounter [facility] Work Phone: 05-11-2023 Miscellaneous Notes Date: 05/11/2023 OR Location: [facility] OR Name: Hoa Alvares, : 1950, Age: 72 y.o., , Sex: female Diagnosis Pre-op Diagnosis * Malignant neoplasm of lower-outer quadrant of right breast of female, estrogen receptor negative (CMS/HCC) [C50.511, Z17.1] Post-op Diagnosis * Malignant neoplasm of lower-outer quadrant of right breast of female, estrogen receptor negative (CMS/HCC) [C50.511, Z17.1] Procedures RIGHT MAG SEED LOCALIZED PARTIAL MASTECTOMY WITH SENTINEL LYMPH NODE BIOPSY 04616 - VA MASTECTOMY PARTIAL VA BX/EXC LYMPH NODE OPEN DEEP AXILLARY NODE [25956] VA INJ RADIOACTIVE TRACER FOR ID OF SENTINEL NODE [05590] Surgeons * Naheed Maxwell - Primary Resident/Fellow/Other Senior Risk Manager: Surgeon(s) and Role: Procedure Summary Anesthesia: General ASA: III Anesthesia Staff: Anesthesiologist: Latoya Aragon MD C-AA: CHENCHO Kendrick Estimated Blood Loss: 5mL Staff: Corporate Director Of Human Resources: Ashanti Pizarro RN Relief Corporate Director Of Human Resources: Beverly Webster RN Relief Scrub: Zhane Chauhan RN Scrub Person: Nannette Calderon RN Details of Procedure: The patient underwent pre-operative magnetic seed localization in the radiology department prior to surgery. Localization studies were reviewed confirming appropriate localization. In the pre-op bay the patient's right breast was marked and injected with technetium 99 in a periareolar 4 quadrant fashion. The patient was then transported to the operative suite. A sign-in was performed verifying patient identity, procedure and laterality. One dose of preoperative antibiotics was given. After induction of anesthesia, uptake into the corresponding axilla was confirmed using the handheld gamma probe. 3cc of isosulfan blue was injected in the subareolar space and massaged for several minutes. The right breast and axilla were prepped and draped in the usual sterile fashion. Just prior to incision, a time-out was performed confirming patient identity, procedure and laterality. Attention was first turned toward the axilla. The handheld gamma probe was used to identify the area of greatest uptake in the axilla and the area was marked on the skin. An incision was made in the axilla and carried down through the subcutaneous tissue and clavipectoral fascia to gain entry into the axilla. The handheld gamma probe was used to identify a hot node which was excised in its entirety. The axilla was palpated and did not reveal any palpably abnormal or blue lymph nodes. Frozen section was negative for miguel angel metastasis. The clavipectoral fascia was re-approximated with 2-0 Vicryl. The dermis was closed with 3-0 Vicryl and the skin was close with a running 4-0 Monocryl. Attention was then turned to the breast. The sentimag probe was used to identify the location of the targeted lesion and marked on the skin. A transverse incision was made, and flaps were raised in the direction of the targeted lesion. The target lesion was then circumferentially dissected using electrocautery. Circumferential dissection was carried out to include the targeted lesion and localization seed. The probe was used to again confirm the presence of the localization seed within the specimen. Once the specimen was completed dissected it was oriented with a silk suture- short suture superior, long suture lateral and passed off the field. The Vector ink kit was used to ink the specimen: red = superior, blue = inferior, yellow = medial, orange = lateral, green = anterior, and black = posterior. A specimen radiograph was performed which confirmed the presence of the lesion, biopsy clip, and localization seed. Six additional cavity margins were taken: superior, inferior, medial, lateral, anterior and posterior with black ink denoting the new margin. The posterior extent of dissection did not include pectoralis fascia. Clips were placed to denote the area of resection. Next, meticulous hemostasis was achieved. The breast tissue was re approximated in multiple layers to recreate the breast mound. The dermis was closed with 3-0 Vicryl suture and the skin was closed with a running 4-0 Monocryl. Benzoin and steri-strips were used as dressing. The patient was then awoken from anesthesia and transported to the PACU in satisfactory condition. [place] Node Biopsy for Breast Cancer Operation performed with curative intent Yes Tracer(s) used to identify sentinel nodes in the upfront surgery (non-neoadjuvant) setting Dye and Radioactive tracer Tracer(s) used to identify sentinel nodes in the neoadjuvant setting N/A All nodes (colored or non-colored) present at the end of a dye-filled lymphatic channel were removed Yes All significantly radioactive nodes were removed Yes All palpably suspicious nodes were removed N/A Biopsy-proven positive nodes marked with clips prior to chemotherapy were identified and removed N/A SPECIMENS: 1. Right axillary sentinel nodes 2. Right magseed localized partial mastectomy: short suture superior, long lateral 3. New superior margin: ink gonzalez new margin, black ink at new margin 4. New inferior margin: ink gonzalez new margin, black ink at new margin 5. New medial margin: ink gonzalez new margin, black ink at new margin 6. New lateral margin: ink gonzalez new margin, black ink at new margin 7. New anterior margin: ink gonzalez new margin, black ink at new margin 8. New posterior margin: ink gonzalez new margin, black ink at new margin Naheed Maxwell DO documented in this encounter [facility] Work Phone: 05-11-2023 Note Formatting of this n ote is different from the original. Date: 05/11/2023 OR Location: [facility] OR Name: Hoa Lopez DO GurpreetB: 1950, Age: 72 y.o., , Sex: female Diagnosis Pre-op Diagnosis * Malignant neoplasm of lower-outer quadrant of right breast of female, estrogen receptor negative (CMS/HCC) [C50.511, Z17.1] Post-op Diagnosis * Malignant neoplasm of lower-outer quadrant of right breast of female, estrogen receptor negative (CMS/HCC) [C50.511, Z17.1] Procedures RIGHT MAG SEED LOCALIZED PARTIAL MASTECTOMY WITH SENTINEL LYMPH NODE BIOPSY 00628 - VA MASTECTOMY PARTIAL VA BX/EXC LYMPH NODE OPEN DEEP AXILLARY NODE [15389] VA INJ RADIOACTIVE TRACER FOR ID OF SENTINEL NODE [15492] Surgeons * Naheed Maxwell - Primary Resident/Fellow/Other Senior Risk Manager: Surgeon(s) and Role: Procedure Summary Anesthesia: General ASA: III Anesthesia Staff: Anesthesiologist: MD John Rivera-AA: CHENCHO Kendrick Estimated Blood Loss: 5mL Staff: Corporate Director Of Human Resources: Ashanti Pizarro RN Relief Corporate Director Of Human Resources: Beverly Webster RN Relief Scrub: Zhane Chauhan RN Scrub Person: Nannette Calderon RN Details of Procedure: The patient underwent pre-operative magnetic seed localization in the radiology department prior to surgery. Localization studies were reviewed confirming appropriate localization. In the pre-op bay the patient's right breast was marked and injected with technetium 99 in a periareolar 4 quadrant fashion. The patient was then transported to the operative suite. A sign-in was performed verifying patient identity, procedure and laterality. One dose of preoperative antibiotics was given. After induction of anesthesia, uptake into the corresponding axilla was confirmed using the handheld gamma probe. 3cc of isosulfan blue was injected in the subareolar space and massaged for several minutes. The right breast and axilla were prepped and draped in the usual sterile fashion. Just prior to incision, a time-out was performed confirming patient identity, procedure and laterality. Attention was first turned toward the axilla. The handheld gamma probe was used to identify the area of greatest uptake in the axilla and the area was marked on the skin. An incision was made in the axilla and carried down through the subcutaneous tissue and clavipectoral fascia to gain entry into the axilla. The handheld gamma probe was used to identify a hot node which was excised in its entirety. The axilla was palpated and did not reveal any palpably abnormal or blue lymph nodes. Frozen section was negative for miguel angel metastasis. The clavipectoral fascia was re-approximated with 2-0 Vicryl. The dermis was closed with 3-0 Vicryl and the skin was close with a running 4-0 Monocryl. Attention was then turned to the breast. The sentimag probe was used to identify the location of the targeted lesion and marked on the skin. A transverse incision was made, and flaps were raised in the direction of the targeted lesion. The target lesion was then circumferentially dissected using electrocautery. Circumferential dissection was carried out to include the targeted lesion and localization seed. The probe was used to again confirm the presence of the localization seed within the specimen. Once the specimen was completed dissected it was oriented with a silk suture- short suture superior, long suture lateral and passed off the field. The Vector ink kit was used to ink the specimen: red = superior, blue = inferior, yellow = medial, orange = lateral, green = anterior, and black = posterior. A specimen radiograph was performed which confirmed the presence of the lesion, biopsy clip, and localization seed. Six additional cavity margins were taken: superior, inferior, medial, lateral, anterior and posterior with black ink denoting the new margin. The posterior extent of dissection did not include pectoralis fascia. Clips were placed to denote the area of resection. Next, meticulous hemostasis was achieved. The breast tissue was re approximated in multiple layers to recreate the breast mound. The dermis was closed with 3-0 Vicryl suture and the skin was closed with a running 4-0 Monocryl. Benzoin and steri-strips were used as dressing. The patient was then awoken from anesthesia and transported to the PACU in satisfactory condition. [place] Node Biopsy for Breast Cancer Operation performed with curative intent Yes Tracer(s) used to identify sentinel nodes in the upfront surgery (non-neoadjuvant) setting Dye and Radioactive tracer Tracer(s) used to identify sentinel nodes in the neoadjuvant setting N/A All nodes (colored or non-colored) present at the end of a dye-filled lymphatic channel were removed Yes All significantly radioactive nodes were removed Yes All palpably suspicious nodes were removed N/A Biopsy-proven positive nodes marked with clips prior to chemotherapy were identified and removed N/A SPECIMENS: 1. Right axillary sentinel nodes 2. Right magseed localized partial mastectomy: short suture superior, long lateral 3. New superior margin: ink gonzalez new margin, black ink at new margin 4. New inferior margin: ink gonzalez new margin, black ink at new margin 5. New medial margin: ink gonzalez new margin, black ink at new margin 6. New lateral margin: ink gonzalez new margin, black ink at new margin 7. New anterior margin: ink gonzalez new margin, black ink at new margin 8. New posterior margin: ink gonzalez new margin, black ink at new margin Naheed Maxwell DO [facility] Work Phone: 05-11-2023 Attending History and physical note H&P reviewed. The patient was examined and there are no changes to the H&P. Source Note - Naheed Maxwell DO - 04/14/2023 10:00 AM EDT BREAST SURGICAL ONCOLOGY NEW CANCER DIAGNOSIS Subjective Hoa Alvares is a 72 y.o. female presents today for evaluation of recently diagnosed carcinoma of the right breast. The patient was initially referred for evaluation of an abnormal mammogram first noted 03/03/2023. Follow-up mammogram and U/S 03/29/2023 showed a right breast mass 8:00 5cmFN measuring 0.6cm. Biopsy recommended. Axilla not scanned. A ultrasound guided biopsy was performed on 04/01/2023 with pathology revealing poorly differentiated carcinoma ER: - VA: - HER2: - Axilla scanned today and negative. Menarche: 15 AFLB: 26 Menopause: 52 HRT: no Previous biopsies: No Previous breast surgeries: No Prior breast cancer: No Family history: maternal aunt and cousin with breast cancer Sister with tongue and throat cancer, Review of Systems Constitutional symptoms: Denies generalized fatigue. Denies weight change, fevers/chills, difficulty sleeping Eyes: Denies double vision, glaucoma, cataracts. Ear/nose/throat/mouth: Denies hearing changes, sore throat, sinus problems. Cardiovascular: No chest pain. Denies irregular heartbeat. Denies ankle swelling. Respiratory: No wheezing, cough, or shortness of breath. Gastrointestinal: No abdominal pain, No nausea/vomiting. No indigestion/heartburn. No change in bowel habits. No constipation or diarrhea. Genitourinary: No urinary incontinence. No urinary frequency. No painful urination. Musculoskeletal: No bone pain, no muscle pain, no joint pain. Integumentary: No rash. No masses. No changes in moles. No easy bruising. Neurological: No headaches. No tremors. No numbness/tingling. Psychiatric: No anxiety. No depression. Endocrine: No excessive thirst. Not too hot or too cold. Not tired or fatigued. Hematological/lymphatic: No swollen glands or blood clotting problems. No bruising. Objective Physical Exam General: Alert and oriented x 3. Mood and affect are appropriate. HEENT: EOMI, PERRLA. Neck: supple, no masses, no cervical adenopathy. Cardiovascular: no lower extremity edema. Pulmonary: breathing non labored on room air. GI: Abdomen soft, no masses. No hepatomegaly or splenomegaly. Lymph nodes: No supraclavicular or axillary adenopathy bilaterally. Musculoskeletal: Full range of motion in the upper extremities bilaterally. Neuro: denies dizziness, tremors Breasts: The breasts were examined in both the seated and supine positions. RIGHT: The nipple is everted without nipple discharge. There are no skin changes, skin thickening, or dimpling. There are no masses palpated in the RIGHT breast. Some post biopsy bruising lateral inferior breast. LEFT: The nipple is everted without nipple discharge. There are no skin changes, skin thickening, or dimpling. There are no masses palpated in the LEFT breast. Radiology review: All images and reports were personally reviewed. Assessment/Plan Right breast poorly differentiated carcinoma G3 triple negative [id number] stage IB Discussed the pathology and treatment options with the patient and family. First, we discussed surgical options: breast conservation vs mastectomy. Breast conservation involves removal of the tumor with a rim of normal breast tissue called a margin. BCT is often done in conjunction with radiation to decrease risk of recurrence. Mastectomy involves removal of all breast tissue. When mastectomy is recommended, referral to a plastic surgeon for reconstruction is recommended. Given the small size of her cancer, she would be an excellent candidate for breast conservation. We then discussed the role of axillary staging. We discussed sentinel lymph node biopsy, indications for axillary node dissection and risks and benefits of each procedure. Next, we discussed adjuvant therapies to surgery. Radiation is usually recommended when BCT is performed. Women 70 or greater with early stage hormone receptor positive cancer may be able to omit radiation. Radiation is recommended after mastectomy for tumors larger than 5cm, positive lymph nodes, or positive margins. The need for chemotherapy will be based on surgical pathology and will be decided by the medical oncologist. The medical oncologist is also responsible for prescribing endocrine therapy for hormone receptor positive tumors. Hoa will be scheduled for Right Magseed localized partial mastectomy and axillary sentinel lymph node biopsy on 04/29/2023. Risks, benefits, alternatives and perioperative expectations were discussed in detail including: bleeding, infection, positive margin status necessitating return to OR, injury to nearby structures and risk of lymphedema with axillary surgery. Naheed Maxwell DO [facility] Work Phone: 05-11-2023 History and physical note H&P reviewed. The patient was examined and there are no changes to the H&P. Source Note - Naheed Maxwell DO - 04/14/2023 10:00 AM EDT BREAST SURGICAL ONCOLOGY NEW CANCER DIAGNOSIS Subjective Hoa Alvares is a 72 y.o. female presents today for evaluation of recently diagnosed carcinoma of the right breast. The patient was initially referred for evaluation of an abnormal mammogram first noted 03/03/2023. Follow-up mammogram and U/S 03/29/2023 showed a right breast mass 8:00 5cmFN measuring 0.6cm. Biopsy recommended. Axilla not scanned. A ultrasound guided biopsy was performed on 04/01/2023 with pathology revealing poorly differentiated carcinoma ER: - VA: - HER2: - Axilla scanned today and negative. Menarche: 15 AFLB: 26 Menopause: 52 HRT: no Previous biopsies: No Previous breast surgeries: No Prior breast cancer: No Family history: maternal aunt and cousin with breast cancer Sister with tongue and throat cancer, Review of Systems Constitutional symptoms: Denies generalized fatigue. Denies weight change, fevers/chills, difficulty sleeping Eyes: Denies double vision, glaucoma, cataracts. Ear/nose/throat/mouth: Denies hearing changes, sore throat, sinus problems. Cardiovascular: No chest pain. Denies irregular heartbeat. Denies ankle swelling. Respiratory: No wheezing, cough, or shortness of breath. Gastrointestinal: No abdominal pain, No nausea/vomiting. No indigestion/heartburn. No change in bowel habits. No constipation or diarrhea. Genitourinary: No urinary incontinence. No urinary frequency. No painful urination. Musculoskeletal: No bone pain, no muscle pain, no joint pain. Integumentary: No rash. No masses. No changes in moles. No easy bruising. Neurological: No headaches. No tremors. No numbness/tingling. Psychiatric: No anxiety. No depression. Endocrine: No excessive thirst. Not too hot or too cold. Not tired or fatigued. Hematological/lymphatic: No swollen glands or blood clotting problems. No bruising. Objective Physical Exam General: Alert and oriented x 3. Mood and affect are appropriate. HEENT: EOMI, PERRLA. Neck: supple, no masses, no cervical adenopathy. Cardiovascular: no lower extremity edema. Pulmonary: breathing non labored on room air. GI: Abdomen soft, no masses. No hepatomegaly or splenomegaly. Lymph nodes: No supraclavicular or axillary adenopathy bilaterally. Musculoskeletal: Full range of motion in the upper extremities bilaterally. Neuro: denies dizziness, tremors Breasts: The breasts were examined in both the seated and supine positions. RIGHT: The nipple is everted without nipple discharge. There are no skin changes, skin thickening, or dimpling. There are no masses palpated in the RIGHT breast. Some post biopsy bruising lateral inferior breast. LEFT: The nipple is everted without nipple discharge. There are no skin changes, skin thickening, or dimpling. There are no masses palpated in the LEFT breast. Radiology review: All images and reports were personally reviewed. Assessment/Plan Right breast poorly differentiated carcinoma G3 triple negative [id number] stage IB Discussed the pathology and treatment options with the patient and family. First, we discussed surgical options: breast conservation vs mastectomy. Breast conservation involves removal of the tumor with a rim of normal breast tissue called a margin. BCT is often done in conjunction with radiation to decrease risk of recurrence. Mastectomy involves removal of all breast tissue. When mastectomy is recommended, referral to a plastic surgeon for reconstruction is recommended. Given the small size of her cancer, she would be an excellent candidate for breast conservation. We then discussed the role of axillary staging. We discussed sentinel lymph node biopsy, indications for axillary node dissection and risks and benefits of each procedure. Next, we discussed adjuvant therapies to surgery. Radiation is usually recommended when BCT is performed. Women 70 or greater with early stage hormone receptor positive cancer may be able to omit radiation. Radiation is recommended after mastectomy for tumors larger than 5cm, positive lymph nodes, or positive margins. The need for chemotherapy will be based on surgical pathology and will be decided by the medical oncologist. The medical oncologist is also responsible for prescribing endocrine therapy for hormone receptor positive tumors. Hoa will be scheduled for Right Magseed localized partial mastectomy and axillary sentinel lymph node biopsy on 04/29/2023. Risks, benefits, alternatives and perioperative expectations were discussed in detail including: bleeding, infection, positive margin status necessitating return to OR, injury to nearby structures and risk of lymphedema with axillary surgery. Naheed Maxwell DO documented in this encounter [facility] Work Phone: 03-01-2023 History of Present illness Narrative Subjective Patient ID: Hoa Alvares is a 72 y.o. female who presents for 6 month mdck.. HPI DMII ai1c is acceptable 7.2 No low bs Checks daily [address] Takes vit b12 and d at 2x recommended doses Will dec dosing Had right knee surgery for meniscal tear Feels tired Takes iron tablet every other High chol Review of Systems Objective BP 122/80 Pulse 72 Ht 1.623 m (5' 3.9 ) Wt 90.3 kg (199 lb) SpO2 98% BMI 34.27 kg/m Physical Exam Vitals reviewed. Constitutional: Appearance: Normal appearance. HENT: Head: Normocephalic and atraumatic. Eyes: Conjunctiva/sclera: Conjunctivae normal. Cardiovascular: Rate and Rhythm: Normal rate and regular rhythm. Pulmonary: Effort: Pulmonary effort is normal. Breath sounds: Normal breath sounds. Musculoskeletal: Cervical back: Neck supple. Skin: General: Skin is warm and dry. Neurological: General: No focal deficit present. Mental Status: She is alert and oriented to person, place, and time. Psychiatric: Mood and Affect: Mood normal. Behavior: Behavior normal. Thought Content: Thought content normal. Judgment: Judgment normal. Assessment/Plan Diagnoses and all orders for this visit: Encounter for screening mammogram for breast cancer - BI mammo bilateral screening tomosynthesis; Future Type 2 diabetes mellitus with hyperglycemia, without long-term current use of insulin ([facility]) - Lipid Panel; Future - Hemoglobin A1C; Future - Basic Metabolic Panel; Future - CBC; Future - Albumin , Urine Random; Future - Creatinine, Urine Random; Future Mixed hyperlipidemia - Lipid Panel; Future documented in this encounter [facility] Work Phone: 03-01-2023 Instructions Jayda Elizabeth MD - 03/01/2023 1:20 PM EDT Glucosamine/chondroitin for arthritis x 1 month documented in this encounter [facility] Work Phone: 11-08-2022 History of Present illness Narrative Chief Complaint Patient presents with Post Op Visit 7 weeks S/p right knee arthroscopy, PMM. Patient states that the knee is overall doing well. No voiced concerns. No longer in therapy. HPI: She presents 7 weeks status post right knee arthroscopy, partial medial meniscectomy. She states the knee is doing well overall. She Denies any issues or concerns. She has occasional aching pain in the knee. No longer physical therapy. Vitals: 11/08/22 1307 Temp: 98.1 degrees F (36.7 degrees C) TempSrc: Temporal Weight: 88.9 kg (196 lb) Height: 1.613 m (5' 3.5 ) Physical Exam: Involved Lower Extremity: ROM: 0-120. Quad tone good. Calf supple and non tender. Mild effusion. Incisions healing well. No erythema. No drainage. Distally neurovascularly intact with 2+ DP pulse and full sensation in the DP/SP/Tibial nerve distribution. Assessment: ICD-10-CM 1. S/P right knee arthroscopy Z98.890 Plan: She is doing well, continue PT exercises to work on ROM, strengthening, and swelling control. She will use NSAIDS as needed for pain control. If She has any questions or issues She will contact the office. Follow up as needed as she is doing well. documented in this encounter [facility] 09-28-2022 History of Present illness Narrative Chief Complaint Patient presents with Post Op Visit 13 days S/p right knee arthroscopy, PMM. Patient states that the knee is overall doing well but had one episode of pain yesterday that has now resolved. Going to therapy 2x per week. HPI: She presents 2 weeks status post right knee arthroscopy, partial medial meniscectomy. She states that her knee is doing well overall. She did have one moment of that pain yesterday but that has improved. Currently physical therapy which is going well. Denies any other issues or concerns. Vitals: 09/28/22 1312 Temp: 98 degrees F (36.7 degrees C) TempSrc: Temporal Weight: 88.9 kg (196 lb) Height: 1.613 m (5' 3.5 ) Physical Exam: Involved Lower Extremity: ROM: 0-110. Quad tone good. Calf supple and non tender. Mild effusion. Incisions healing well. No erythema. No drainage. Sutures removed. Steri strips placed. Distally neurovascularly intact with 2+ DP pulse and full sensation in the DP/SP/Tibial nerve distribution. Assessment: ICD-10-CM 1. S/P right knee arthroscopy Z98.890 Plan: She is doing well, continue PT to work on ROM, strengthening, and swelling control. She will use NSAIDS as needed for pain control. If She has any questions or issues She will contact the office. Follow up in 4 weeks for repeat evaluation. documented in this encounter [facility] 09-15-2022 History of Present illness Narrative S/P R PMM done 09/15/22. The patient will be a low fall risk. She prefers minimal visits due to 40$ copay. Physical findings include limited knee ROM and strength. Continue with open to closed chain ROM/PRE and gait/bal work as carmelo.Clinical Presentation: Stable and/or uncomplicated characteristics.Level of Complexity: lowProblem List: activity limitations, ADLs/IADLs/self care skills, decreased functional level, decreased knowledge of HEP, decreased knowledge of precautions, fall risk, gait/locomotion, pain, range of motion/joint mobility, strength and transfers. [facility] Work Phone: 09-15-2022 Hospital Discharge instructions Corinna Hoskins RN - 09/15/2022 10:[address] Reis's discharge instructions in the green folder provided for your detailed postoperative instructions. Anesthesia Precautions & Expectations: After anesthesia, rest for [address], drink alcoholic beverages or make any important decisions during this time. General anesthesia may cause a sore throat, jaw discomfort or muscle aches. These symptoms can last for one or two days. documented in this encounter [facility] 09-15-2022 Nurse Surgical operation note Patient transferred to 14 via cart in stable condition. Report given to REMY Weinstein. Cart left in locked and lowest position with side rails up x2. Snack and call light given to patient. Monitors and alarms on and attached to patient. [facility] 09-15-2022 Nurse Note Patient transferred to 14 via cart in stable condition. Report given to REMY Weinstein. Cart left in locked and lowest position with side rails up x2. Snack and call light given to patient. Monitors and alarms on and attached to patient. Patient taken via cart to PACU, report given to Kylah ALBERTO OR 2 temp 67.1F, humidity 46.0% documented in this encounter [facility] 09-15-2022 Nurse Surgical operation note Patient taken via cart to PACU, report given to Kylah ALBERTO [facility] 09-15-2022 Note Formatting of this n ote might be different from the original. DATE OF SURGERY: 09/15/2022 PRE OPERATIVE DIAGNOSIS: Tear of medial meniscus of right knee, unspecified tear type, unspecified whether old or current tear, initial encounter [S83.241A] Primary osteoarthritis of right knee [M17.11] POST OPERATIVE DIAGNOSIS: Tear of medial meniscus of right knee, unspecified tear type, unspecified whether old or current tear, initial encounter [S83.241A] Primary osteoarthritis of right knee [M17.11] PROCEDURE: Procedure(s) (LRB): #1 ARTHROSCOPY KNEE W/ MENISCECTOMY (Right) SURGEON Surgeon(s) and Role: * Anna Reis MD - Primary ASSISTANTS: NONE ANESTHESIOLOGIST LABOR RELATIONS WORKER: BRANDON Guido; BRANDON Manuel SURGICAL STAFF Corporate Director Of Human Resources: Corinna Powell RN; Jenny Wyatt RN Scrub Person: Tawana Mendoza ANESTHESIA TYPE: General FLUIDS: Per anesthesia record. ESTIMATED BLOOD LOSS: Minimal INDICATIONS FOR PROCEDURE: The patient is a pleasant individual who we have been following in our orthopedic office for their knee pain. The MRI evidence along with some signs and symptoms were in agreement with the diagnosis, and the patient had failed conservative measures of treatment. They desired to undergo arthroscopic intervention, so we consented the patient with all risks and benefits explained and no guarantees or warrantees made. DESCRIPTION OF PROCEDURE: The patient was correctly identified in the preoperative holding area with the correct limb marked. They were brought back to the operating room and placed supine on a well-padded table with the operative leg in an arthroscopic leg king and nonoperative leg in a well leg king. The foot of the bed was dropped and they were prepped and draped in a standard sterile fashion. A timeout was performed and antibiotics administered. An #11 blade was used to make a stab incision in the superolateral aspect of the knee, and the inflow cannula was inserted and the knee filled with fluid. A standard anteromedial and anterolateral portals were then established. The camera was inserted into the knee, and the findings were as follows (the following represents the grade of cartilage wear in each compartment): Patella: II Trochlear Groove: II and III Medial Femoral Condyle: II and III Medial Tibial Plateau: II and III Lateral Femoral Condyle: I Lateral Tibial Plateau: I Intercondylar Notch: Intact ACL and PCL The medial meniscus was then evaluated and found to have a tear at the posterior horn., body. and posterior horn/body junction.. The meniscal tear was debrided using a shaver and meniscal biter down to a clean, smooth surface. The meniscus was stable after debridement. The other components were inspected and found to be intact at the probing and visualization. The knee was again verified to not have any fragments, including in the gutters, that were loose. I subsequently drained the fluid from the knee and closed the wounds using 3-0 nylon. The wounds were then injected with 1% lidocaine and 0.5% bupivacaine as well as the knee itself for a total of 20 cc. The wounds were then dressed using 4 x 4s, ABDs, soft roll, and Antonio wrap. The patient was then awakened and transferred off the table without incident. COMPLICATIONS None DRAINS: None. CONDITIONS: Stable to PACU. Anna Reis MD September 15, 2022 9:10 AM [employer] Work Phone: 09-15-2022 Note Formatting of this n ote might be different from the original. See immediate full operative note. [employer] 09-15-2022 Miscellaneous Notes DATE OF SURGERY: 09/15/2022 PRE OPERATIVE DIAGNOSIS: Tear of medial meniscus of right knee, unspecified tear type, unspecified whether old or current tear, initial encounter [S83.241A] Primary osteoarthritis of right knee [M17.11] POST OPERATIVE DIAGNOSIS: Tear of medial meniscus of right knee, unspecified tear type, unspecified whether old or current tear, initial encounter [S83.241A] Primary osteoarthritis of right knee [M17.11] PROCEDURE: Procedure(s) (LRB): #1 ARTHROSCOPY KNEE W/ MENISCECTOMY (Right) SURGEON Surgeon(s) and Role: * Anna Reis MD - Primary ASSISTANTS: NONE ANESTHESIOLOGIST LABOR RELATIONS WORKER: Dorothy Gonsalez APRN-LABOR RELATIONS WORKER; Nazia Cantrell APRN-LABOR RELATIONS WORKER SURGICAL STAFF Corporate Director Of Human Resources: Corinna Powell RN; Jenny Wyatt RN Scrub Person: Tawana Mendoza ANESTHESIA TYPE: General FLUIDS: Per anesthesia record. ESTIMATED BLOOD LOSS: Minimal INDICATIONS FOR PROCEDURE: The patient is a pleasant individual who we have been following in our orthopedic office for their knee pain. The MRI evidence along with some signs and symptoms were in agreement with the diagnosis, and the patient had failed conservative measures of treatment. They desired to undergo arthroscopic intervention, so we consented the patient with all risks and benefits explained and no guarantees or warrantees made. DESCRIPTION OF PROCEDURE: The patient was correctly identified in the preoperative holding area with the correct limb marked. They were brought back to the operating room and placed supine on a well-padded table with the operative leg in an arthroscopic leg king and nonoperative leg in a well leg king. The foot of the bed was dropped and they were prepped and draped in a standard sterile fashion. A timeout was performed and antibiotics administered. An #11 blade was used to make a stab incision in the superolateral aspect of the knee, and the inflow cannula was inserted and the knee filled with fluid. A standard anteromedial and anterolateral portals were then established. The camera was inserted into the knee, and the findings were as follows (the following represents the grade of cartilage wear in each compartment): Patella: II Trochlear Groove: II and III Medial Femoral Condyle: II and III Medial Tibial Plateau: II and III Lateral Femoral Condyle: I Lateral Tibial Plateau: I Intercondylar Notch: Intact ACL and PCL The medial meniscus was then evaluated and found to have a tear at the posterior horn., body. and posterior horn/body junction.. The meniscal tear was debrided using a shaver and meniscal biter down to a clean, smooth surface. The meniscus was stable after debridement. The other components were inspected and found to be intact at the probing and visualization. The knee was again verified to not have any fragments, including in the gutters, that were loose. I subsequently drained the fluid from the knee and closed the wounds using 3-0 nylon. The wounds were then injected with 1% lidocaine and 0.5% bupivacaine as well as the knee itself for a total of 20 cc. The wounds were then dressed using 4 x 4s, ABDs, soft roll, and Antonio wrap. The patient was then awakened and transferred off the table without incident. COMPLICATIONS None DRAINS: None. CONDITIONS: Stable to PACU. Anna L Derrick, MD September 15, 2022 9:10 AM See immediate full operative note. documented in this encounter [facility] 09-15-2022 Nurse Surgical operation note OR 2 temp 67.1F, humidity 46.0% [facility] 09-13-2022 History of Present illness Narrative Chief Complaint Patient presents with Pre-op Exam H&P Right knee arthroscopy, partial medial menisectomy, and other interventions as needed HPI: She presents for right knee surgery H&P. She states that her symptoms remain same she wishes to proceed with surgery. Denies any recent fever or chills. Denies any other issues or concerns. To recap previous visit: Patient presents with right knee pain. MRI completed Sikh which the patient has brought with her today. Patient states that her pain started in January of 2022 with no known injury. Patient was not able to bend her knee . Patient has completed formal physical therapy without any improvement. Patient states the pain is located along the medial joint line and is sharp in nature at times. Patient states that the pain will radiate laterally at times as well. Patient states that she has muscular weakness as well as instability within her knee patient she is unable to sleep at night with her leg in extension as this causes severe pain. Patient states that her gait has become more increasingly limping while walking. Received a steroid injection in February with no relief. She is here today to discuss options as she is no longer able to function at his as she once could. PMH: Past Medical History: Diagnosis Date Anemia Diabetes mellitus Essential hypertension, benign Hiatal hernia Hyperlipidemia JESSY (obstructive sleep apnea) Past Surgical History: Procedure Laterality Date COLONOSCOPY DIAGNOSTIC 2020 EGD DIAGNOSTIC 2020 REMOVAL BILIARY DUCT/GALLBLADDER CALCULI/DEBRIS PERCUTANEOUS W/ IMAGE 2018 SECTION 1980 SECTION 1977 Social History Socioeconomic History Marital status: Spouse name: Not on file Number of children: Not on file Years of education: Not on file Highest education level: Not on file Occupational History Not on file Tobacco Use Smoking status: Never Smokeless tobacco: Never Vaping Use Vaping Use: Never used Substance and Sexual Activity Alcohol use: Yes Comment: rare Drug use: Never Sexual activity: Not on file Other Topics Concern Not on file Social History Narrative Not on file Social Determinants of Health Financial Resource Strain: Not on file Food Insecurity: Not on file Transportation Needs: Not on file Physical Activity: Not on file Stress: Not on file Social Connections: Not on file Intimate Partner Violence: Not on file Housing Stability: Not on file Codeine, *adhesive tape, and Latex Family History Problem Relation Age of Onset Bleeding or Clotting Problems Mother hx PE Stroke Mother Anesth Problems Mother given ativan- made her wacky Bleeding or Clotting Problems Sister hx of DVT Anesth Problems Sister just sensitive to medications Vitals: 09/13/22 1258 BP: 120/70 Temp: 97.8 degrees F (36.6 degrees C) TempSrc: Temporal Weight: 89.4 kg (197 lb) Height: 1.626 m (5' 4 ) Physical Exam: Knee Exam: right ROM: 0-130. Quad tone: poor. Calf supple and nontender. No effusion. Palpation: medial joint line tenderness, nontender laterally Joshua's: Negative Posterior Drawer: Negative Varus/Valgus stress: Negative Tyra's: Positive Patellar apprehension: Negative Patellar compression: Negative Distally neurovascular intact with 2+ DP pulse and full sensation in the DP/SP/Tibial nerve distributions. Review of Images: See procedure note Assessment: ICD-10-CM 1. Other tear of medial meniscus of right knee, unspecified whether old or current tear, initial encounter S83.241A 2. Primary osteoarthritis of right knee M17.11 Plan: At this time, we have reviewed the past medical notes pertaining to her chief complaint today, as well as her MRI which shows a medial meniscus root tear with extrusion as well as moderate medial compartment knee OA. She shows signs of this on exam as well. We have discussed options with the patient today from conservative to surgical. She has failed conservative treatment to date. Due to this we are offering her a right knee arthroscopy, partial medial menisectomy, and other interventions as needed. We have discussed with the patient that this should help with the sharp stabbing pains associated with a meniscus tear but not the dull achy pains associated with the underlying knee OA. She is understanding of this at this time. She is electing to proceed with surgery at this time. She will schedule for this in the near future. She will need PCP clearance prior to surgery. She'll call the office with any questions or concerns, otherwise we will see her the day of surgery. Consent: Both Surgical and Non-surgical methods of treatment were discussed with the patient and they have elected to proceed with surgery. The risks and benefits were thoroughly explained including but not limited to: infection, bleeding, neurovascular damage, blood clots which may lead to pulmonary embolism, the need for further surgery stroke, and . It was also explained that the goal of surgery is to correct structural abnormalities that may be resulting in their pain but may not get rid of all the pain they are experiencing. At this time, the patients quality of life has decreased with the pain they are experiencing and they cannot perform daily functions. The patient voiced full understanding and wishes to proceed with surgery. They will be scheduled in the near future. Right knee arthroscopy, partial medial menisectomy, and other interventions as needed documented in this encounter [facility] 08-04-2022 History of Present illness Narrative Chief Complaint Patient presents with Knee Pain Right knee pain, pt brought images with her today. Pain started back in January 2022, no know injury, pt was not able to bend her knee, pt has completed formal therapy with out any improvement. Pain mostly in her medial aspect of her knee, pt states sometime her pain radiates laterally. Pt has muscle weakness and instability with her knee. Having her leg at full extension causes increase in her pain and very hard to sleep. Pt states her gait has increased limping when walking. Steroid mid sept- no relief HPI: Patient presents with right knee pain. MRI completed Sikh which the patient has brought with her today. Patient states that her pain started in January of 2022 with no known injury. Patient was not able to bend her knee . Patient has completed formal physical therapy without any improvement. Patient states the pain is located along the medial joint line and is sharp in nature at times. Patient states that the pain will radiate laterally at times as well. Patient states that she has muscular weakness as well as instability within her knee patient she is unable to sleep at night with her leg in extension as this causes severe pain. Patient states that her gait has become more increasingly limping while walking. Received a steroid injection in February with no relief. She is here today to discuss options as she is no longer able to function at his as she once could. PMH: No past medical history on file. Past Surgical History: Procedure Laterality Date COLONOSCOPY DIAGNOSTIC 2020 REMOVAL BILIARY DUCT/GALLBLADDER CALCULI/DEBRIS PERCUTANEOUS W/ IMAGE 2018 SECTION 1980 SECTION 1977 Social History Socioeconomic History Marital status: Spouse name: Not on file Number of children: Not on file Years of education: Not on file Highest education level: Not on file Occupational History Not on file Tobacco Use Smoking status: Never Smokeless tobacco: Never Substance and Sexual Activity Alcohol use: Not Currently Drug use: Never Sexual activity: Not on file Other Topics Concern Not on file Social History Narrative Not on file Social Determinants of Health Financial Resource Strain: Not on file Food Insecurity: Not on file Transportation Needs: Not on file Physical Activity: Not on file Stress: Not on file Social Connections: Not on file Intimate Partner Violence: Not on file Housing Stability: Not on file Skin adhesives and Codeine History reviewed. No pertinent family history. Vitals: 08/04/22 1036 Temp: 97.6 degrees F (36.4 degrees C) TempSrc: Temporal Weight: 90.3 kg (199 lb) Height: 1.626 m (5' 4 ) Physical Exam: Knee Exam: right ROM: 0-130. Quad tone: poor. Calf supple and nontender. No effusion. Palpation: medial joint line tenderness, nontender laterally Joshua's: Negative Posterior Drawer: Negative Varus/Valgus stress: Negative Tyra's: Positive Patellar apprehension: Negative Patellar compression: Negative Distally neurovascular intact with 2+ DP pulse and full sensation in the DP/SP/Tibial nerve distributions. Review of Images: See procedure note Assessment: ICD-10-CM 1. Other tear of medial meniscus of right knee, unspecified whether old or current tear, initial encounter S83.241A 2. Primary osteoarthritis of right knee M17.11 Plan: At this time, we have reviewed the past medical notes pertaining to her chief complaint today, as well as her MRI which shows a medial meniscus root tear with extrusion as well as moderate medial compartment knee OA. She shows signs of this on exam as well. We have discussed options with the patient today from conservative to surgical. She has failed conservative treatment to date. Due to this we are offering her a right knee arthroscopy, partial medial menisectomy, and other interventions as needed. We have discussed with the patient that this should help with the sharp stabbing pains associated with a meniscus tear but not the dull achy pains associated with the underlying knee OA. She is understanding of this at this time. She is electing to proceed with surgery at this time. She will schedule for this in the near future. She will need PCP clearance prior to surgical intervention. She will follow up in office within 30 days of surgery. Call the office with any questions or concerns in meantime. Consent: Both Surgical and Non-surgical methods of treatment were discussed with the patient and they have elected to proceed with surgery. The risks and benefits were thoroughly explained including but not limited to: infection, bleeding, neurovascular damage, blood clots which may lead to pulmonary embolism, the need for further surgery stroke, and . It was also explained that the goal of surgery is to correct structural abnormalities that may be resulting in their pain but may not get rid of all the pain they are experiencing. At this time, the patients quality of life has decreased with the pain they are experiencing and they cannot perform daily functions. The patient voiced full understanding and wishes to proceed with surgery. They will be scheduled in the near future. Right knee arthroscopy, partial medial menisectomy, and other interventions as needed Chief Complaint Patient presents with Knee Pain Right knee pain, pt brought images with her today. Pain started back in January 2022, no know injury, pt was not able to bend her knee, pt has completed formal therapy with out any improvement. Pain mostly in her medial aspect of her knee, pt states sometime her pain radiates laterally. Pt has muscle weakness and instability with her knee. Having her leg at full extension causes increase in her pain and very hard to sleep. Pt states her gait has increased limping when walking. Steroid mid sept- no relief HPI: Patient presents with right knee pain. MRI completed Sikh which the patient has brought with her today. Patient states that her pain started in January of 2022 with no known injury. Patient was not able to bend her knee . Patient has completed formal physical therapy without any improvement. Patient states the pain is located along the medial joint line and is sharp in nature at times. Patient states that the pain will radiate laterally at times as well. Patient states that she has muscular weakness as well as instability within her knee patient she is unable to sleep at night with her leg in extension as this causes severe pain. Patient states that her gait has become more increasingly limping while walking. Received a steroid injection in February with no relief. She is here today to discuss options as she is no longer able to function at his as she once could. PMH: No past medical history on file. Past Surgical History: Procedure Laterality Date COLONOSCOPY DIAGNOSTIC 2020 REMOVAL BILIARY DUCT/GALLBLADDER CALCULI/DEBRIS PERCUTANEOUS W/ IMAGE 2018 SECTION 1980 SECTION 1977 Social History Socioeconomic History Marital status: Spouse name: Not on file Number of children: Not on file Years of education: Not on file Highest education level: Not on file Occupational History Not on file Tobacco Use Smoking status: Never Smokeless tobacco: Never Substance and Sexual Activity Alcohol use: Not Currently Drug use: Never Sexual activity: Not on file Other Topics Concern Not on file Social History Narrative Not on file Social Determinants of Health Financial Resource Strain: Not on file Food Insecurity: Not on file Transportation Needs: Not on file Physical Activity: Not on file Stress: Not on file Social Connections: Not on file Intimate Partner Violence: Not on file Housing Stability: Not on file Skin adhesives and Codeine History reviewed. No pertinent family history. Vitals: 08/04/22 1036 Temp: 97.6 degrees F (36.4 degrees C) TempSrc: Temporal Weight: 90.3 kg (199 lb) Height: 1.626 m (5' 4 ) Physical Exam: Knee Exam: right ROM: 0-130. Quad tone: poor. Calf supple and nontender. No effusion. Palpation: medial joint line tenderness, nontender laterally Joshua's: Negative Posterior Drawer: Negative Varus/Valgus stress: Negative Tyra's: Positive Patellar apprehension: Negative Patellar compression: Negative Distally neurovascular intact with 2+ DP pulse and full sensation in the DP/SP/Tibial nerve distributions. Review of Images: See procedure note Assessment: ICD-10-CM 1. Other tear of medial meniscus of right knee, unspecified whether old or current tear, initial encounter S83.241A 2. Primary osteoarthritis of right knee M17.11 Plan: At this time, we have reviewed the past medical notes pertaining to her chief complaint today, as well as her MRI which shows a medial meniscus root tear with extrusion as well as moderate medial compartment knee OA. She shows signs of this on exam as well. We have discussed options with the patient today from conservative to surgical. She has failed conservative treatment to date. Due to this we are offering her a right knee arthroscopy, partial medial menisectomy, and other interventions as needed. We have discussed with the patient that this should help with the sharp stabbing pains associated with a meniscus tear but not the dull achy pains associated with the underlying knee OA. She is understanding of this at this time. She is electing to proceed with surgery at this time. She will schedule for this in the near future. She will need PCP clearance prior to surgical intervention. She will follow up in office within 30 days of surgery. Call the office with any questions or concerns in meantime. Consent: Both Surgical and Non-surgical methods of treatment were discussed with the patient and they have elected to proceed with surgery. The risks and benefits were thoroughly explained including but not limited to: infection, bleeding, neurovascular damage, blood clots which may lead to pulmonary embolism, the need for further surgery stroke, and . It was also explained that the goal of surgery is to correct structural abnormalities that may be resulting in their pain but may not get rid of all the pain they are experiencing. At this time, the patients quality of life has decreased with the pain they are experiencing and they cannot perform daily functions. The patient voiced full understanding and wishes to proceed with surgery. They will be scheduled in the near future. Right knee arthroscopy, partial medial menisectomy, and other interventions as needed NIYA Albrecht was acting as a scribe today for this note. I have performed all essential components of the history, and physical exam. I have confirmed the diagnosis and developed a plan of care at this visit. I have reviewed the note following the visit and have add edits as appropriate to my evaluation and plan of care. Anna Ries MD documented in this encounter [facility] 05-17-2022 History of Present illness Narrative Patient was identified by name and date. This session held standing hip extension and Q sets as end range extension immediately increasing her pain. She progressed CKC exercises with no increase in Sxs but pain level remained at 5 through out Tx. Consulted physical therapist concerning patient's lack of progress. [facility] Work Phone: 03-09-2022 History of Present illness Narrative xray showed mild djd with effusioncont to have pain despite colchicine and indocinhas sl elevated UA levelright KNEE STEROID INJECTION: 3 months ago made absolutely no difference.Physical therapy x10 sessions she states with no difference. She continues to have severe limping popping of the medial knee feels unstable like it is going to give out if she fully extends knee she has pain along the right medial joint line.dm unable to tolerate metformin due to diarrheaSugar average on patient's machine is 119 over the last 30days.hiatal herniaDr Sippy 1 year ago had colonoscopy and EGDShe has a large hiatal hernia and would be a surgical candidate.having early satietylast 7 weeks30 mintues after eating has increasing pain for 6 to 8 hours and vomitting to relieve extreme pain b/w breast and backradiates to left shoulderfreezing chills cannot catch breathoccurrs after eatingstress test 30 year ago30 minutes after eating she states she is now getting severe chest pain left shoulder pain diaphoresis with chills that last 6 to 8 hours. [facility] Work Phone: 08-25-2020 History of Present illness Narrative DM IIchecks bs q amno low bs reactionutd on p13 and 23August 2020 = 6.7 %BG have been higher after covid 160 to 200sthis am was 149colon cancer screendue colonoscopy he states she will check actual dateBenign essential hypertensionTSH was normalChronic left-sided low back pain with left-sided sciaticaPhysical Therapy -Follow-up visit in 2 monthsbetterwent to PTsome HEPpain now 09/03 was 7/10otc once a week tylenol amira with gardeningShortness of breathXray Chest 2 View PA normal except hatal herniastill having sobwalking around neighborhoodno cpx 1 month 20 minute feels less sobno palpitationsocc lightheadedness with 2.5 hours of gardeninghas diarrhea for 1 months loose stools 6 times per daylast atb was over 1 year or moreon city wellno blood? ibs dx in the pastlast [facility] will decrease to one a dayif 1c high had jardiance [facility] Work Phone: 08-25-2020 History of Present illness Narrative DM IIutd on p13 and 23a1c August 2020 = 6.7 %Benign essential hypertensionTSH was normalhas diarrhea for 1 months loose stools 6 times per daylast atb was over [facility]on [facility] wellno blood? ibs dx in the pastlast colonoscopy was september 2016 [facility] in aemrmetformin once a day and stools still has loose stoolrecommend stop metformin for 1 weekif 1c high add jardiance but is expensivept gluocose meter average 128 = 7 days and 14 days= 137 and 30 days = 142has stress with taking care of motherhusband has dementia and parkinsonsGERD has 8 cm hiatal hernia and s/p cholecystectomyupper endoscopy 2017has intermittent dysphagia with ealry satietylast episode was febuary [facility] Work Phone: 08-25-2020 History of Present illness Narrative DM IIutd on p13 and a1c August 2020 = 6.7 %off metformin and now no diarrheahas some swelling with piogliizonewants to work on diet and will not restart metform ERBenign essential hypertensionTSH was normalgood controlGERD has 8 cm hiatal hernia and s/p cholecystectomyhad upper and lower endoscopy and has hiatal herniawill try with weight loss but has not been able to loose wtwants to exercisestates even with calorie restrictions and still not loosing weightwants to become more active [facility] Work Phone: 08-25-2020 History of Present illness Narrative DM IIa1c August 2020 = 6.7 %a1c september 2021 = 7.7 %needs to scehdule opthalmologyhas some swelling with mriftvenzxqN1i 7.0 January 2022lowest bs 110 and up to 122stress with MIL and dementia now in assisted livingright nknee pain in knee cap for 3 weeksno injurynow in the back of knee and down leg inthr front to foottylenoll arthritis for 2 weeksusing canehas been more active with moving MILno swelliong wearing braceHTNgood controlno cp no palpGERD has 8 cm hiatal hernia and s/p cholecystectomyhad upper and lower endoscopy and has hiatal herniaroscolonoscopy 2020 every 10 yearsnever treated for osteopenia/oteoporosis [facility] Work Phone: 10-04-2016 History of Present illness Narrative Ms. Alvares is a 70-year-old female seen at the request of Dr. Elizabeth for evaluation of a hiatal hernia.Her last upper endoscopy was 10/04/2016 in [place]. This showed an 8 cm hiatal hernia. The esophagus was otherwise normal.She was noted to be anemic on labs from December, hemoglobin 10.8. [facility] Work Phone: documented [facility] this encounter [facility] Diagnosis Other tear of medial meniscus of right knee, unspecified whether old or current tear, initial encounter- Primary Primary osteoarthritis of right knee Primary localized osteoarthrosis, lower leg Tear of medial meniscus of right knee, unspecified tear type, unspecified whether old or current tear, initial encounter Primary osteoarthritis of right knee Primary localized osteoarthrosis, lower leg [facility] Other tear of medial meniscus of right knee, unspecified whether old or current tear, initial encounter- Primary Primary osteoarthritis of right knee Primary localized osteoarthrosis, lower leg Tear of medial meniscus of right knee, unspecified tear type, unspecified whether old or current tear, initial encounter Primary osteoarthritis of right knee Primary localized osteoarthrosis, lower leg [facility] Diagnosis S/P right knee arthroscopy- Primary Other postprocedural status documented in this [facility] Diagnosis S/P right knee arthroscopy- Primary Other postprocedural status documented [facility] this [facility] Diagnosis S/P right knee arthroscopy- Primary Other [facility]ced[facility] Encounter for screening mammogram for breast cancer- Primary Type 2 diabetes mellitus with hyperglycemia, without long-term current use of insulin (CMS/HCC) Mixed hyperlipidemia documented in this encounter [facility] Work Phone: Evaluation note* Diagnosis Malignant neoplasm of lower-outer quadrant of right breast of female, estrogen receptor negative (CMS/HCC)- Primary Malignant neoplasm of lower-outer quadrant of right breast of female, estrogen receptor negative (CMS/HCC) Malignant neoplasm of lower-outer quadrant of right breast of female, estrogen receptor negative (CMS/HCC) documented in this encounter [facility] Work Phone: Evaluation note* Diagnosis Malignant neoplasm of lower-outer quadrant of right breast of female, estrogen receptor negative (CMS/HCC)- Primary Malignant neoplasm of lower-outer quadrant of right breast of female, estrogen receptor negative (CMS/HCC) documented in this encounter [facility] Work Phone: Evaluation note* Diagnosis Malignant neoplasm of lower-outer quadrant of right breast of female, estrogen receptor negative (CMS/HCC) documented in this encounter [facility] Work Phone: Evaluation note* Diagnosis Malignant neoplasm of lower-outer quadrant of right breast of female, estrogen receptor negative (CMS/HCC) documented in this encounter [facility] Work Phone: [phone] note* Diagnosis Unspecified lump in the right breast, unspecified quadrant documented in this encounter [facility] Work Phone: [phone] note* Diagnosis Malignant neoplasm of lower-outer quadrant of right breast of female, estrogen receptor negative (CMS/HCC) documented in this encounter [facility] Work Phone: Evaluation note* Diagnosis Mass of right breast, unspecified quadrant Type 2 diabetes mellitus with hyperglycemia, without long-term current use of insulin (CMS/HCC) documented in this encounter [facility] Work Phone: [phone] note* Diagnosis Malignant neoplasm of lower-outer quadrant of right breast of female, estrogen receptor negative (CMS/HCC) documented in this encounter [facility] Work Phone: History of Present illness NarrativePatient orientated to pool. Patient with weak TrA and attempts to keep intact with ther-ex. Patienthas good form/understanding with ther-ex, once shown. Patient needing one UE support with LE ther-ex and with 100% unloading. Continue with core stability while performing dyn activity to decrease back pain. [facility] Work Phone: History of Present illness Narrative* Patient identified by name & . Patient wore a mask during treatment d/t Covid-19 precautions. Oriented to use of emergency walkie talkie. * Treatment consisted of aquatic ex's for unloading, core strength and LE strength. Good demo of TrA isometric, requires verbal and tactile cues to maintain with ex's. Progressed reps of several ex's with good tolerance. Pain abolished post treatment. [facility] Work Phone: History of Present illness NarrativePatient tolerated treatment without increased pain. Patient able to advance to step taps and then step ups this session, maintaining good form and fair trunk control. Moderate cueing for TrA engagement with UE/LE exercises with patient demonstrating fair trunk control. Able to perform bicycle with no UE assist, 2 UE assist with hip abduction. [facility] Work Phone: History of Present illness NarrativePatient identified by name and date of . Patient demonstrated fair TrA with cues. She was ableto progress with reps and resistance w/o increased pain. Reviewed proper body mechanics with yard work, she demonstrated good understanding. [facility] Work Phone: History of Present illness Narrative* Patient voiced she'd like today's session to be the last treatment because of her high co-pay for insurance. Treatment today of HEP review, update, and instruction -> provided handouts plus blue and plum resistance bands for progression. Patient with good understanding of HEP. She was educated in symptom management and will contact her if increase in pain. * Response to treatment: decreased pain and improved knowledge and understanding of condition. [facility] Work Phone: History of Present illness Narrative* Hoa Alvares, a 71 year old female, arrives to outpatient PT c/o R knee pain. Pt presents with the following impairments: R knee pain, deficits in R knee AROM, deficits in R knee and B hip musculature strength, restriction of surrounding R knee musculature, and decreased functional mobility per LEFS score. These impairments contribute to difficulty in activity limitations and participation restrictions including ambulation, stair climbing, standing, and household management. The pt s signs and symptoms are consistent with medical diagnosis and muscular imbalance and influencing pain patterns.The pt will benefit from skilled PT services 1x/week for 4 weeks to address the above stated impairm ents and functional limitations to maximize participation and ease in household and social related activities. The pt has a good prognosis when considering positive factors including improvement in symptoms since initial onset with barriers such as age and chronicity of symptoms. No change in pain at end of session. Good tolerance to ther ex including stretches and strengthening exercises of R knee. Requires verbal cues for increased recruitment. The pt verbalized understanding and agreement togoals and POC. Thank you for this referral and please call [phone] with any questions or concerns. * Clinical Presentation: Stable and/or uncomplicated characteristics. * Level of Complexity: low * Problem List: activity limitations, ADLs/IADLs/self care skills, balance, decreased knowledge of HEP, fall risk, gait/locomotion, pain, participation restrictions, range of motion/joint mobility and strength. [facility] Work Phone: History of Present illness NarrativePatient was identified by name and date. IASTM/STM completed to reduce soft tissue restrictions at R knee musculature. After manual therapy she reported decreased pain and tightness. Completed all LE PREs without c/o. [facility] Work Phone: History of Present illness NarrativePatient was identified by name and date. Noted limited R knee extension and tightness in IT band. IASTM/STM and cupping completed to reduce soft tissue restrictions at R knee musculature. Aftermanual therapy she demo'd improved knee extension and completed all LE PREs [facility] c[facility] Work [facility]: History of Present illness Narrative* is progressing [good/well/fair] through their POC [s/p or addressing] . The pt demonstrates and verbalizes improvements in *[impairments]*. This contributes to greater ease with *[A/L]* however pt is still experiencing difficulty with . * The pt will benefit from continued skilled PT services 2x/week for 8-12 weeks to address the above stated impairments and functional limitations to maximize participation and ease in household, social, and work related activities. Plan to focus on *[manual therapy, therapeutic exercise, postural retraining, education]* [Add any barriers/ possible reasons for regressions]. Pt verbalized understanding and agreement to goals and POC. Thank you for this referral and please call [phone] with any questions or concerns. [facility] Work Phone: History of Present illness Narrative* Hoa Alvares is progressing fairly through their POC addressing R knee pain. The pt demonstrates and verbalizes improvements in R knee AROM, R knee and B hip musculature strength and functional mobility per LEFS score. This contributes to greater ease with completion of household management howeverpt is still experiencing difficulty with R knee pain as well as restrictions of surrounding R knee musculature. Patient has attended 4 therapy visits including initial evaluation with ther ex, manualtherapy, and HEP interventions. She is partially meeting or progressing toward current therapy goals. * The pt will benefit from continued skilled PT services 2x/week for 3 weeks to address the above stated impairments and functional limitations to maximize participation and ease in household and social related activities. Plan to focus on ther ex and manual therapy interventions to address R knee pain and mobility and strengthening for ease of ADLs/iADLs. Focus on manual therapy interventions d/t exacerbation of pain from previous household management. Educated on completion of HEP with patient verbalizing understanding. Noted decrease in pain and improved mobility of R knee following manual therapy techniques. Increased restriction of popliteal fossa and hamstrings of R LE. Pt verbalized understanding and agreement to goals and POC. Thank you for this referral and please call [phone] any questions or concerns. [facility] Work Phone: History of Present illness NarrativePatient was identified by name and date. IASTM/STM completed to reduce soft tissue restrictions at R knee musculature. She was able to complete all LE PREs with reports of catching/popping during transition from flex to exten.[facility] Work Phone: History of Present illness NarrativePatient was identified by name and date. IASTM/STM completed to reduce soft tissue restrictions in R knee musculature. She was able to progress CKC exercises with c/o fatigue only.[facility] Work Phone: History of Present illness NarrativePatient was identified by name and date. Consulted physical therapist to add Ultrasound to address localized pain in medial aspect of patella. Her Sxs are localized at pes anserine region. After session she reported fatigue but decreased pain.[facility] Work Phone: Hismvrh of Present illness NarrativePatient was identified by name and date. Noted hypomobility at patella and addressed with IASTM/STM. After manual therapy she reported smoother transitions into flexion/exten. Completed all LE PREs without reports of increased Sxs. She demo's antalgic pattern with decreased stance on R LE.[facility] Work Phone: Histhxm of Present illness Narrative* is progressing [good/well/fair] through their POC [s/p or addressing] . The pt demonstrates and verbalizes improvements in *[impairments]*. This contributes to greater ease with *[A/L]* however pt is still experiencing difficulty with . * Pt is being placed on hold for 30 days to attempt performing their home exercise program independently. Pt instructed to contact with any problems, questions, or adjustments. This will serve as the patient s discharge if they elect not to resume skilled PT within 30 days. Pt verbalized understanding and agreement to goals and POC. Thank you for this referral and please call [phone] with any questions or concerns. [facility] Work Phone: History of Present illness Narrative* Hoa Alvares is progressing fairly through their POC addressing R knee pain. The pt demonstrates and verbalizes improvements in R knee AROM and B hip and R knee musculature strength. This contributesto greater ease with household management however pt is still experiencing difficulty with R knee pain, deficits in R knee AROM, gait deficits, and functional mobility per LEFS. Patient has attended 10 therapy sessions including initial evaluation with ther ex, manual therapy, ultrasound, and HEP interventions. She is partially meeting goals in regards to ROM and strength but functional mobility and stability have made minimal progress. Patient educated on current HEP and she would benefit fromfollow-up with referring provider regarding remaining impairments. She may benefit from referral toorthopedics in regards to R knee pain and impairments. Patient agreeable to plan. Verbalizes and demonstrates understanding of HEP with updated handout provided. Pain at 2/10 at end of session. * Pt is being placed on hold for 30 days to attempt performing their home exercise program independently. Pt instructed to contact with any problems, questions, or adjustments. This will serve as the patient s discharge if they elect not to resume skilled PT within 30 days. Pt verbalized understanding and agreement to goals and POC. Thank you for this referral and please call [phone] with any questions or concerns. [facility] Work Phone: History of Present illness Narrative* Hoa Alvares is progressing fairly through their POC addressing R knee pain. The pt demonstrates and verbalizes improvements in R knee AROM and B hip and R knee musculature strength. This contributesto greater ease with household management however pt is still experiencing difficulty with R knee pain, deficits in R knee AROM, gait deficits, and functional mobility per LEFS. Patient has attended 10 therapy sessions including initial evaluation with ther ex, manual therapy, ultrasound, and HEP interventions. She is partially meeting goals in regards to ROM and strength but functional mobility and stability have made minimal progress. Patient educated on current HEP and she would benefit fromfollow-up with referring provider regarding remaining impairments. She may benefit from referral toorthopedics in regards to R knee pain and impairments. Patient agreeable to plan. Verbalizes and demonstrates understanding of HEP with updated handout provided. Pain at 2/10 at end of session. * Pt is being placed on hold for 30 days to attempt performing their home exercise program independently. Pt instructed to contact with any problems, questions, or adjustments. This will serve as the patient s discharge if they elect not to resume skilled PT within 30 days. Pt verbalized understanding and agreement to goals and POC. Thank you for this referral and please call [phone] with any questions or concerns. -[facility] Work Phone: History of Present illness Narrative* lvm mri showed med men tear recommend PT and or ortho * pt will let us know how she wants to proceed * xray showed mild djd with effusion * cont to have pain despite colchicine and indocin * has sl elevated UA level * right KNEE STEROID INJECTION: 3 months ago made absolutely no difference. * Physical therapy x10 sessions she states with no difference. She continues to have severe limping popping of the medial knee feels unstable like it is going to give out if she fully extends knee she has pain along the right medial joint line. * dm unable to tolerate metformin due to diarrhea * Sugar average on patient's machine is 119 over the last 30days. * hiatal hernia * Dr Chavis 1 year ago had colonoscopy and EGD * She has a large hiatal hernia and would be a surgical candidate. * having early satiety * last 7 weeks * 30 mintues after eating has increasing pain for 6 to 8 hours and vomitting to relieve extreme pain b/w breast and back * radiates to left shoulder * freezing chills cannot catch breath * occurrs after eating * stress test 30 year ago * 30 minutes after eating she states she is now getting severe chest pain left shoulder pain diaphoresis with chills that last 6 to 8 hours. -[facility] Work Phone: History of Present illness Narrative* The patient is being seen for the subsequent annual wellness visit. * Past Medical, Surgical and Family History: reviewed and updated in chart. * Medications and Supplements: Review of all medications by a prescribing practitioner or clinical pharmacist (such as prescriptions, OTCs, herbal therapies and supplements) documented in the medical record. * No, the patient is not using opioids. * Patient Self Assessment of Health Status: good. * Tobacco use: Non-User * Alcohol use: User * Illicit drug use: Non-User * Current diet: does consume caffeine. * Exercise Frequency: the patient does not exercise. * Depression/Suicide Screening: . * During the past 2 weeks, the patient felt down, depressed or hopeless. * During the past 2 weeks, the patient felt little interest or pleasure in doing things. * PHQ-9 Depression Scale: * 1. Little interest or pleasure in doing things - several days * 2. Feeling down, depressed or hopeless - several days * 3. Trouble falling asleep or sleeping too much - several days * 4. Feeling tired or having little energy - several days * 5. Poor appetite or overeating - not at all * 6. Feeling bad about self or failure or letting others down - not at all * 7. Trouble concentrating on things - not at all * 8. Moving / speaking slowly or fidgety / restless - not at all * 9. Thought would be better off or hurting self - not at all * Total Score: 10/21 * Severity of depression is in remission. * How difficult have these problems made it for you to do your work, take care of things at home, or get along with people? Somewhat difficult. * Hearing Impairment: Patient has slight hearing impairment. * Cognitive Impairment: No cognitive impairment observed. * Bathing: performs independently. * Dressing: performs independently. * Walking: performs independently. * Bladder: occasional accident. * Managing Finances: performs independently. * Shopping: performs independently. * Managing Medications: performs independently. * Housework / Basic Home Maintenance: performs independently. * Falls Risk Screening:. HOA has fallen in the last 6 months. Her fall resulted in the following injury: meniscal tear. * Fall risk factors: urinary incontinence and antihypertensive use, but no polypharmacy, no sedative use, no visual impairment, no mobility impairment, no alcohol use, no deconditioning, no cognitive impairment, no postural hypotension, up and go test was normal and no antidepressant use. * Care Plan Low/Moderate Risk: Regular physical activity such as walking, water aerobics or keren chi to improve strength, balance, coordination and flexibility. Wear appropriate, sensible shoe wear. Remove fall hazards at home such as loose rugs, obstacles, use non-slip surface in bath or shower. Keep living space well lit. * Home safety risk factors: loose rugs. * Advance directives:. Advanced Care Planning discussed and documented advance care plan or surrogatedecision maker documented in the medical record. Patient has no living will. Patient has no healthcare POA. * Patient's End of Life Decisions: End of life decisions were reviewed with the patient. I agree to follow the patient's decisions. Concerns with the patient's end of life decisions: DNR. * mri showed med men tear recommend PT and or ortho * has right knee arthroscopy scheduled * DMII * ai1c is acceptable * liipid not at goal * will increase lipitor to 20 mg * fasating blood sugars * . * hiatal hernia * Dr Chavis 1 year ago had colonoscopy and EGD * She has a large hiatal hernia and would be a surgical candidate. * having early satiety * still not ready to go with surgery * has SAD [facility] Work Phone: History of Present illness NarrativePatient identified by date of and name. Patient has tightness in the R leg musculature that was addressed with STM and E-stim on IFC /CP added this session to address moderate edema. She progressed OKC exercises without c/o. CHERELLE Miller. All clinical decision making and treatment directly supervised by Christine Herrmann2.[facility] Work Phone: History of Present illness NarrativePatient identified by date of and name. This session able to progress reps with OKC exerciseswithout c/o. Noted she conts with antalgic gait pattern with decreased stance time and push off on R LE. CHERELLE Miller. All clinical decision making and treatment directly supervised by Christine Herrmann2.[facility] Work Phone: History of Present illness NarrativePatient identity confirmed today with name/. added to HEP and given handouts; the patient was advised to continue the SLS ex with extended knee; there was no C/O pain with present closed chain ex progression.[facility] Work Phone: Reason for visit Narrative* Initial Evaluation . R knee pain. * Referred by: Jayda Elizabeth MD [facility] Work Phone: Reason for visit Narrative* Auth/Cert Specialty Diagnoses / Procedures Referred By Nikolas sofia Referred To Contact Diagnoses Tear of medial meniscus of right knee, unspecified tear type, unspecified whether old or current tear, initial encounter Primary osteoarthritis of right knee Tear of medial meniscus of right knee, unspecified tear type, unspecified whether old or current tear, initial encounter [S83.241A] Primary osteoarthritis of right knee [M17.11] Procedures [facility] KNE SURG W/MENISCECTOMY MED/LAT W/SHVG ARTHROSCOPY KNEE W/ MENISCECTOMY Anna Reis MD [address] [place] [address] Referral ID Status Reason Start Date Expiration Date Visits Re quested Visits Authorized [id number] 08/10/2022 1 1 [facility] for visit Narrative* Initial Evaluation . S/P R knee scope/PMM. * Referred by: Derrick [facility] Work Phone: Family History No Family History Records Found Mother Name Dates Details Family history of type 2 mirna betes mellitus(V18.0, Z83.3) Status:Active Father Name Dates Details FHx: Parkinson's disease(V17 .2, Z82.0) Status:Active Sister Name Dates Details Family history of malignant neoplasm(V16.9, Z80.9) Status:Active Unknown Family Member Name Dates Details Family history of type 2 mirna betes mellitus: Mother(V18.0, Z83.3) Status:Active FHx: Parkinson's disease: Fa ther(V17.2, Z82.0) Status:Active Family history of malignant neoplasm: Sister(V16.9, Z80.9) Status:Active Unknown Family Member Name Dates Details Family history of type 2 mirna betes mellitus: Mother(V18.0, Z83.3) Status:Active FHx: Parkinson's disease: Fa ther(V17.2, Z82.0) Status:Active Family history of malignant neoplasm: Sister(V16.9, Z80.9) Status:Active Unknown Family Member Name Dates Details Family history of type 2 mirna betes mellitus: Mother(V18.0, Z83.3) Status:Active FHx: Parkinson's disease: Fa ther(V17.2, Z82.0) Status:Active Family history of malignant neoplasm: Sister(V16.9, Z80.9) Status:Active Unknown Family Member Name Dates Details Family history of type 2 mirna betes mellitus: Mother(V18.0, Z83.3) Status:Active FHx: Parkinson's disease: Fa ther(V17.2, Z82.0) Status:Active Family history of malignant neoplasm: Sister(V16.9, Z80.9) Status:Active Unknown Family Member Name Dates Details Family history of type 2 mirna betes mellitus: Mother(V18.0, Z83.3) Status:Active FHx: Parkinson's disease: Fa ther(V17.2, Z82.0) Status:Active Family history of malignant neoplasm: Sister(V16.9, Z80.9) Status:Active Unknown Family Member Name Dates Details Family history of type 2 mirna betes mellitus: Mother(V18.0, Z83.3) Status:Active FHx: Parkinson's disease: Fa ther(V17.2, Z82.0) Status:Active Family history of malignant neoplasm: Sister(V16.9, Z80.9) Status:Active Unknown Family Member Name Dates Details Family history of type 2 mirna betes mellitus: Mother(V18.0, Z83.3) Status:Active FHx: Parkinson's disease: Fa ther(V17.2, Z82.0) Status:Active Family history of malignant neoplasm: Sister(V16.9, Z80.9) Status:Active Unknown Family Member Name Dates Details Family history of type 2 mirna betes mellitus: Mother(V18.0, Z83.3) Status:Active FHx: Parkinson's disease: Fa ther(V17.2, Z82.0) Status:Active Family history of malignant neoplasm: Sister(V16.9, Z80.9) Status:Active Unknown Family Member Name Dates Details Family history of type 2 mirna betes mellitus: Mother(V18.0, Z83.3) Status:Active FHx: Parkinson's disease: Fa ther(V17.2, Z82.0) Status:Active Family history of malignant neoplasm: Sister(V16.9, Z80.9) Status:Active Unknown Family Member Name Dates Details Family history of type 2 mirna betes mellitus: Mother(V18.0, Z83.3) Status:Active FHx: Parkinson's disease: Fa ther(V17.2, Z82.0) Status:Active Family history of malignant neoplasm: Sister(V16.9, Z80.9) Status:Active Unknown Family Member Name Dates Details Family history of malignant neoplasm: Sister(V16.9, Z80.9) Status:Active FHx: Parkinson's disease: Fa ther(V17.2, Z82.0) Status:Active Family history of type 2 mirna betes mellitus: Mother(V18.0, Z83.3) Status:Active Unknown Family Member Name Dates Details Family history of type 2 mirna betes mellitus: Mother(V18.0, Z83.3) Status:Active FHx: Parkinson's disease: Fa ther(V17.2, Z82.0) Status:Active Family history of malignant neoplasm: Sister(V16.9, Z80.9) Status:Active Unknown Family Member Name Dates Details Family history of type 2 mirna betes mellitus: Mother(V18.0, Z83.3) Status:Active FHx: Parkinson's disease: Fa ther(V17.2, Z82.0) Status:Active Family history of malignant neoplasm: Sister(V16.9, Z80.9) Status:Active Unknown Family Member Name Dates Details Family history of type 2 mirna betes mellitus: Mother(V18.0, Z83.3) Status:Active FHx: Parkinson's disease: Fa ther(V17.2, Z82.0) Status:Active Family history of malignant neoplasm: Sister(V16.9, Z80.9) Status:Active Unknown Family Member Name Dates Details Family history of type 2 mirna betes mellitus: Mother(V18.0, Z83.3) Status:Active FHx: Parkinson's disease: Fa ther(V17.2, Z82.0) Status:Active Family history of malignant neoplasm: Sister(V16.9, Z80.9) Status:Active Unknown Family Member Name Dates Details Family history of type 2 mirna betes mellitus: Mother(V18.0, Z83.3) Status:Active FHx: Parkinson's disease: Fa ther(V17.2, Z82.0) Status:Active Family history of malignant neoplasm: Sister(V16.9, Z80.9) Status:Active Unknown Family Member Name Dates Details Family history of type 2 mirna betes mellitus: Mother(V18.0, Z83.3) Status:Active FHx: Parkinson's disease: Fa ther(V17.2, Z82.0) Status:Active Family history of malignant neoplasm: Sister(V16.9, Z80.9) Status:Active Unknown Family Member Name Dates Details Family history of type 2 mirna betes mellitus: Mother(V18.0, Z83.3) Status:Active FHx: Parkinson's disease: Fa ther(V17.2, Z82.0) Status:Active Family history of malignant neoplasm: Sister(V16.9, Z80.9) Status:Active Unknown Family Member Name Dates Details Family history of type 2 mirna betes mellitus: Mother(V18.0, Z83.3) Status:Active FHx: Parkinson's disease: Fa ther(V17.2, Z82.0) Status:Active Family history of malignant neoplasm: Sister(V16.9, Z80.9) Status:Active Unknown Family Member Name Dates Details Family history of type 2 mirna betes mellitus: Mother(V18.0, Z83.3) Status:Active FHx: Parkinson's disease: Fa ther(V17.2, Z82.0) Status:Active Family history of malignant neoplasm: Sister(V16.9, Z80.9) Status:Active Unknown Family Member Name Dates Details Family history of malignant neoplasm: Sister(V16.9, Z80.9) Status:Active FHx: Parkinson's disease: Fa ther(V17.2, Z82.0) Status:Active Family history of type 2 mirna betes mellitus: Mother(V18.0, Z83.3) Status:Active Unknown Family Member Name Dates Details Family history of type 2 mirna betes mellitus: Mother(V18.0, Z83.3) Status:Active FHx: Parkinson's disease: Fa ther(V17.2, Z82.0) Status:Active Family history of malignant neoplasm: Sister(V16.9, Z80.9) Status:Active Unknown Family Member Name Dates Details Family history of type 2 mirna betes mellitus: Mother(V18.0, Z83.3) Status:Active FHx: Parkinson's disease: Fa ther(V17.2, Z82.0) Status:Active Family history of malignant neoplasm: Sister(V16.9, Z80.9) Status:Active Unknown Family Member Name Dates Details Family history of type 2 mirna betes mellitus: Mother(V18.0, Z83.3) Status:Active FHx: Parkinson's disease: Fa ther(V17.2, Z82.0) Status:Active Family history of malignant neoplasm: Sister(V16.9, Z80.9) Status:Active Unknown Family Member Name Dates Details Family history of type 2 mirna betes mellitus: Mother(V18.0, Z83.3) Status:Active FHx: Parkinson's disease: Fa ther(V17.2, Z82.0) Status:Active Family history of malignant neoplasm: Sister(V16.9, Z80.9) Status:Active Unknown Family Member Name Dates Details Family history of type 2 mirna betes mellitus: Mother(V18.0, Z83.3) Status:Active FHx: Parkinson's disease: Fa ther(V17.2, Z82.0) Status:Active Family history of malignant neoplasm: Sister(V16.9, Z80.9) Status:Active Unknown Family Member Name Dates Details Family history of type 2 mirna betes mellitus: Mother(V18.0, Z83.3) Status:Active FHx: Parkinson's disease: Fa ther(V17.2, Z82.0) Status:Active Family history of malignant neoplasm: Sister(V16.9, Z80.9) Status:Active Unknown Family Member Name Dates Details Family history of type 2 mirna betes mellitus: Mother(V18.0, Z83.3) Status:Active FHx: Parkinson's disease: Fa ther(V17.2, Z82.0) Status:Active Family history of malignant neoplasm: Sister(V16.9, Z80.9) Status:Active Unknown Family Member Name Dates Details Family history of type 2 mirna betes mellitus: Mother(V18.0, Z83.3) Status:Active FHx: Parkinson's disease: Fa ther(V17.2, Z82.0) Status:Active Family history of malignant neoplasm: Sister(V16.9, Z80.9) Status:Active Unknown Family Member Name Dates Details Family history of type 2 mirna betes mellitus: Mother(V18.0, Z83.3) Status:Active FHx: Parkinson's disease: Fa ther(V17.2, Z82.0) Status:Active Family history of malignant neoplasm: Sister(V16.9, Z80.9) Status:Active Unknown Family Member Name Dates Details Family history of type 2 imrna betes mellitus: Mother(V18.0, Z83.3) Status:Active FHx: Parkinson's disease: Fa ther(V17.2, Z82.0) Status:Active Family history of malignant neoplasm: Sister(V16.9, Z80.9) Status:Active Unknown Family Member Name Dates Details Family history of type 2 mirna betes mellitus: Mother(V18.0, Z83.3) Status:Active FHx: Parkinson's disease: Fa ther(V17.2, Z82.0) Status:Active Family history of malignant neoplasm: Sister(V16.9, Z80.9) Status:Active Unknown Family Member Name Dates Details Family history of type 2 mirna betes mellitus: Mother(V18.0, Z83.3) Status:Active FHx: Parkinson's disease: Fa ther(V17.2, Z82.0) Status:Active Family history of malignant neoplasm: Sister(V16.9, Z80.9) Status:Active Unknown Family Member Name Dates Details Family history of type 2 mirna betes mellitus: Mother(V18.0, Z83.3) Status:Active FHx: Parkinson's disease: Fa ther(V17.2, Z82.0) Status:Active Family history of malignant neoplasm: Sister(V16.9, Z80.9) Status:Active Unknown Family Member Name Dates Details Family history of type 2 mirna betes mellitus: Mother(V18.0, Z83.3) Status:Active FHx: Parkinson's disease: Fa ther(V17.2, Z82.0) Status:Active Family history of malignant neoplasm: Sister(V16.9, Z80.9) Status:Active Unknown Family Member Name Dates Details Family history of malignant neoplasm: Sister(V16.9, Z80.9) Status:Active FHx: Parkinson's disease: Fa ther(V17.2, Z82.0) Status:Active Family history of type 2 mirna betes mellitus: Mother(V18.0, Z83.3) Status:Active Unknown Family Member Name Dates Details Family history of type 2 mirna betes mellitus: Mother(V18.0, Z83.3) Status:Active FHx: Parkinson's disease: Fa ther(V17.2, Z82.0) Status:Active Family history of malignant neoplasm: Sister(V16.9, Z80.9) Status:Active Unknown Family Member Name Dates Details Family history of type 2 mirna betes mellitus: Mother(V18.0, Z83.3) Status:Active FHx: Parkinson's disease: Fa ther(V17.2, Z82.0) Status:Active Family history of malignant neoplasm: Sister(V16.9, Z80.9) Status:Active Unknown Family Member Name Dates Details Family history of type 2 mirna betes mellitus: Mother(V18.0, Z83.3) Status:Active FHx: Parkinson's disease: Fa ther(V17.2, Z82.0) Status:Active Family history of malignant neoplasm: Sister(V16.9, Z80.9) Status:Active Unknown Family Member Name Dates Details Family history of type 2 mirna betes mellitus: Mother(V18.0, Z83.3) Status:Active FHx: Parkinson's disease: Fa ther(V17.2, Z82.0) Status:Active Family history of malignant neoplasm: Sister(V16.9, Z80.9) Status:Active Unknown Family Member Name Dates Details Family history of type 2 mirna betes mellitus: Mother(V18.0, Z83.3) Status:Active FHx: Parkinson's disease: Fa ther(V17.2, Z82.0) Status:Active Family history of malignant neoplasm: Sister(V16.9, Z80.9) Status:Active Unknown Family Member Name Dates Details Family history of type 2 mirna betes mellitus: Mother(V18.0, Z83.3) Status:Active FHx: Parkinson's disease: Fa ther(V17.2, Z82.0) Status:Active Family history of malignant neoplasm: Sister(V16.9, Z80.9) Status:Active Unknown Family Member Name Dates Details Family history of type 2 mirna betes mellitus: Mother(V18.0, Z83.3) Status:Active FHx: Parkinson's disease: Fa ther(V17.2, Z82.0) Status:Active Family history of malignant neoplasm: Sister(V16.9, Z80.9) Status:Active Unknown Family Member Name Dates Details Family history of type 2 mirna betes mellitus: Mother(V18.0, Z83.3) Status:Active FHx: Parkinson's disease: Fa ther(V17.2, Z82.0) Status:Active Family history of malignant neoplasm: Sister(V16.9, Z80.9) Status:Active Unknown Family Member Name Dates Details Family history of type 2 mirna betes mellitus: Mother(V18.0, Z83.3) Status:Active FHx: Parkinson's disease: Fa ther(V17.2, Z82.0) Status:Active Family history of malignant neoplasm: Sister(V16.9, Z80.9) Status:Active Unknown Family Member Name Dates Details Family history of type 2 mirna betes mellitus: Mother(V18.0, Z83.3) Status:Active FHx: Parkinson's disease: Fa ther(V17.2, Z82.0) Status:Active Family history of malignant neoplasm: Sister(V16.9, Z80.9) Status:Active Unknown Family Member Name Dates Details Family history of type 2 mirna betes mellitus: Mother(V18.0, Z83.3) Status:Active FHx: Parkinson's disease: Fa ther(V17.2, Z82.0) Status:Active Family history of malignant neoplasm: Sister(V16.9, Z80.9) Status:Active Unknown Family Member Name Dates Details Family history of type 2 mirna betes mellitus: Mother(V18.0, Z83.3) Status:Active FHx: Parkinson's disease: Fa ther(V17.2, Z82.0) Status:Active Family history of malignant neoplasm: Sister(V16.9, Z80.9) Status:Active Unknown Family Member Name Dates Details Family history of type 2 mirna betes mellitus: Mother(V18.0, Z83.3) Status:Active FHx: Parkinson's disease: Fa ther(V17.2, Z82.0) Status:Active Family history of malignant neoplasm: Sister(V16.9, Z80.9) Status:Active Chief Complaint 2 month f/u.2 month check upHiatal hernia4 month f/u , review labs.4 month pt. also c/o right knee pain x 3 weeks.Pt. c/o R knee pain x months.Pt. c/o R knee pain x months.6 month and AWV Reason for Referral Specialty Diagnoses / Procedures Referred By Contac t Referred To Contact Physical Therapy Diagnoses S/P right knee arthroscopy Lenka Ha, STUDENT FINANCE SPECIALIST-[employer] SUPPORT REPRESENTATIVE [address] [place] [address] Referral ID Status Reason Start Date Expiration Date V isits Requested Visits Authorized [id number] New Request 09/15/2022 10/10/2023 1 1 Scheduling Instructions . Specialty Diagnoses / Procedures Referred By Contac t Referred To Contact Radiology Diagnoses Encounter for screening mammogram for breast cancer Procedures BI mammo bilateral screening tomosynthesis Jayda Elizabeth MD Referral ID Status Reason Start Date Expiration Date Visits Requested Visits Authorized [id number] Authorized Perform Procedure 03/01/2023 08/28/2023 1 1 Specialty Diagnoses / Procedures Referred By Contac t Referred To Contact Diagnoses Malignant neoplasm of lower-outer quadrant of right breast of female, estrogen receptor negative (CMS/HCC) Procedures ECG [place] [address] [place] [id number] Referral ID Status Reason Start Date Expiration Date V isits Requested Visits Authorized [id number] Pending Review 04/14/2023 04/13/2024 1 1 Specialty Diagnoses / Procedures Referred By Contac t Referred To Contact Radiology Diagnoses Malignant neoplasm of lower-outer quadrant of right breast of female, estrogen receptor negative (CMS/HCC) Procedures BI [place] [address] [facility], [address] [place], [place] [id number] Referral ID Status Reason Start Date Expiration Date Visits Requested Visits Authorized [id number] Authorized Perform Procedure 04/13/2024 1 1 Specialty Diagnoses / Procedures Referred By Contac t Referred To Contact Radiology Diagnoses Malignant neoplasm of lower-outer quadrant of right breast of female, estrogen receptor negative (CMS/HCC) Procedures NM injection only for sentinel node [place] [address] [address] Referral ID Status Reason Start Date Expiration Date Visits Requested Visits Authorized [id number] Authorized Perform Procedure 3 04/13/2024 3 3 Specialty Diagnoses / Procedures Referred By Contac t Referred To Contact Radiology Diagnoses Malignant neoplasm of lower-outer quadrant of right breast of female, estrogen receptor negative (CMS/HCC) Procedures BI breast [place] [address] [place] [address] Referral ID Status Reason Start Date Expiration Date Visits Requested Visits Authorized [id number] Authorized Perform Procedure 3 04/13/2024 1 1 Specialty Diagnoses / Procedures Referred By Contac t Referred To Contact Radiology Diagnoses Malignant neoplasm of lower-outer quadrant of right breast of female, estrogen receptor negative (CMS/HCC) Procedures BI [place] [address] [place] [id number] Referral ID Status Reason Start Date Expiration Date Visits Requested Visits Authorized [id number] Pending Review Perform Procedure 3 04/13/2024 1 1 Specialty Diagnoses / Procedures Referred By Contac t Referred To Contact Radiology Diagnoses Unspecified lump in the right breast, unspecified quadrant Procedures BI mammo right post biopsy clip Jayda Elizabeth MD [address] [facility], [place] [phone] Referral ID Status Reason Start Date Expiration Date Visits Requested Visits Authorized [id number] Authorized Perform Procedure 03/31/2023 09/27/2023 1 1 Specialty Diagnoses / Procedures Referred By Contac t Referred To Contact Radiology Diagnoses Mass of right breast, unspecified quadrant Procedures BI breast right core needle biopsy Jayda Elizabeth MD [address] [facility], [address] [place] [address] Referral ID Status Reason Start Date Expiration Date Visits Requested Visits Authorized [id number] Authorized Perform Procedure 03/29/2023 09/25/2023 1 1 Specialty Diagnoses / Procedures Referred By Contac t Referred To Contact Radiology Diagnoses Malignant neoplasm of lower-outer quadrant of right breast of female, estrogen receptor negative (CMS/HCC) Procedures BI mammo bilateral diagnostic tomosynthesis Naheed Maxwell, [address] [facility], [address] [place] [address] Referral ID Status Reason Start Date Expiration Date Visits Requested Visits Authorized [id number] Authorized Perform Procedure 06/02/2023 06/01/2024 1 1 Summary Purpose Advance Directives No Advanced Directives Records FoundLatest Code Status on File Code Status Date Activated Date Inactivated Comments Full Code 05/11/2023 8:23 AM Question Answer Comments Plan of Care: Code Status Discussion Not Compl eted Decision Maker: Provider Rationale: Patient condition do es not warrant discussion Latest Code Status on File Code Status Date Activated Date Inactivated Comments Full Code 05/11/2023 8:23 AM 05/11/2023 6:09 PM Question Answer Comments Plan of Care: Code Status Discussion Not Compl eted Decision Maker: Provider Rationale: Patient condition do es not warrant discussion Latest Code Status on File Code Status Date Activated Date Inactivated Comments Full Code 05/11/2023 8:23 AM 05/11/2023 6:09 PM Question Answer Comments Plan of Care: Code Status Discussion Not Compl eted Decision Maker: Provider Rationale: Patient condition do es not warrant discussion Additional Source Comments Care Teams (unrecognized sec tion and content) Brick Paver Relationship Specialty Start Date End Date Jayda Elizabeth MD [address] [place] [address] PCP - General Family Medicine 08/04/22 Brick Paver Relationship Specialty Start Date End Date Jayda Elizabeth MD [address] [place] [address] PCP - General Family Medicine 08/04/22 Brick Paver Relationship Specialty Start Date End Date Jayda Elizabeth MD [address] [place] [phone] PCP - General Family Medicine 08/04/22 Brick Paver Relationship Specialty Start Date End Date Jayda Elizabeth MD [address] [place] [phone] PCP - General Family Medicine 08/04/22 Brick Paver Relationship Specialty Start Date End Date Jayda Elizabeth MD PCP - General 03/01/23 Jenny Pascual MD [address] [place] [address] PCP - [employer] Medicare [employer]age PCP 06/27/22 Brick Paver Relationship Specialty Start Date End Date Jayda Elizabeth MD [facility] [address] [facility], [place] [address] PCP - General 03/01/23 Jenny Pascual MD [address] [place] [address] PCP - [employer] Medicare Advantage PCP 06/27/22 Brick Paver Relationship Specialty Start Date End Date Jayda Elizabeth MD [facility] [address] [facility], [place] [phone] PCP - General 03/01/23 Jenny Pascual MD [address] [place], [place] [phone] PCP - [employer] Medicare Advantage PCP 06/27/22 Brick Paver Relationship Specialty Start Date End Date Jayda Elizabeth MD [address] [facility], [place] [phone] PCP - General 03/01/23 Jenny Pascual MD [address] [place] [address] Medical Office [place] [phone] PCP - [employer] Medicare Advantage PCP 06/27/22 Brick Paver Relationship Specialty Start Date End Date Jayda Elizabeth MD [address] [facility], [place] [phone] PCP - General 03/01/23 Jenny Pascual MD [address] [place] [address] Medical Office [place] [phone] PCP - [employer] Medicare Advantage PCP 06/27/22 Brick Paver Relationship Specialty Start Date End Date Jayda Elizabeth MD [address] [facility], [place] [phone] PCP - General 03/01/23 Jenny Pascual MD [address] [facility] Medical Office [place] [phone] PCP - [employer] Medicare Advantage PCP 06/27/22 Brick Paver Relationship Specialty Start Date End Date Jayda Elizabeth MD [address] [facility], [place] [phone] PCP - General 03/01/23 Jenny Pascual MD [address] [facility] [place] [address] PCP - [employer] Medicare Advantage PCP 06/27/22 Reason for Visit (unrecogniz ed section and content) Reason Comments Pre-op Exam H&P Right knee arthr oscopy, partial medial menisectomy, and other interventions as needed Reason Comments Post Op Visit 13 days S/p right kn ee arthroscopy, PMM. Patient states that the knee is overall doing well but had one episode of pain yesterday that has now resolved. Going to therapy 2x per week. Reason Comments Post Op Visit 7 weeks S/p right kn ee arthroscopy, PMM. Patient states that the knee is overall doing well. No voiced concerns. No longer in therapy. Reason Comments 6 month mdck. Specialty Diagnoses / Procedures Referred By Nikolas sofia Referred To Contact Diagnoses Malignant neoplasm of lower-outer quadrant of right breast of female, estrogen receptor negative (CMS/HCC) Procedures ECG [place] [address] [address] Referral ID Status Reason Start Date Expiration Date V isits Requested Visits Authorized [id number] Pending Review 04/14/2023 04/13/2024 1 1 Specialty Diagnoses / Procedures Referred By Nikolas sofia Referred To Contact Diagnoses Malignant neoplasm of lower-outer quadrant of right breast of female, estrogen receptor negative (CMS/HCC) Malignant neoplasm of lower-outer quadrant of right breast of female, estrogen receptor negative (CMS/HCC) [C50.511, Z17.1] Procedures VA MASTECTOMY PARTIAL VA BX/EXC LYMPH NODE OPEN DEEP AXILLARY NODE VA INJ RADIOACTIVE TRACER FOR ID OF SENTINEL NODE RIGHT MAG SEED LOCALIZED PARTIAL MASTECTOMY WITH SENTINEL LYMPH NODE BIOPSY Naheed Maxwell, [address] [facility], [address] [place] [address] [place] [address] [place] [address] Referral ID Status Reason Start Date Expiration Date Visits Re quested Visits Authorized [id number] 1 1 Specialty Diagnoses / Procedures Referred By Contac t Referred To Contact Radiology Diagnoses Malignant neoplasm of lower-outer quadrant of right breast of female, estrogen receptor negative (CMS/HCC) Procedures BI breast [place] [address] [facility], [address] [place] [address] Referral ID Status Reason Start Date Expiration Date Visits Requested Visits Authorized [id number] Authorized Perform Procedure 3 04/13/2024 1 1 Specialty Diagnoses / Procedures Referred By Contac t Referred To Contact Radiology Diagnoses Malignant neoplasm of lower-outer quadrant of right breast of female, estrogen receptor negative (CMS/HCC) Procedures BI [place] [address] [facility], [address] [place] [address] Referral ID Status Reason Start Date Expiration Date Visits Requested Visits Authorized [id number] Pending Review Perform Procedure 3 04/13/2024 1 1 Specialty Diagnoses / Procedures Referred By Contac t Referred To Contact Radiology Diagnoses Unspecified lump in the right breast, unspecified quadrant Procedures BI mammo right post biopsy clip Jayda Elizabeth MD [address] [facility][note 3], [place] [phone] Referral ID Status Reason Start Date Expiration Date Visits Requested Visits Authorized [id number] Authorized Perform Procedure 03/31/2023 09/27/2023 1 1 Specialty Diagnoses / Procedures Referred By Contac t Referred To Contact Radiology Diagnoses Mass of right breast, unspecified quadrant Procedures BI breast right core needle biopsy Jayda Elizabeth MD [address] [facility][note 3], [place] [phone] Referral ID Status Reason Start Date Expiration Date Visits Requested Visits Authorized [id number] Authorized Perform Procedure 03/29/2023 09/25/2023 1 1 Reason Comments Post-op Continuous Active and Recently Administ ered Medications (unrecognized section and content) PRN Medication Order 09/13/2022 09/14/2022 09/15/2022 Bupivacaine (PF) (MARCAINE) 0.5 % injection NEEDED, Starting on Tue09/15/22 at 0833, Until Tue09/15/22 at 1308, Intra-op/Intra-Proc 0833 (Given - Provid er: Anna Reis MD - Comment: given to sterile field mixed with 1% lidocaine 50/50) ceFAZolin (ANCEF) 2 g in dextrose 100 mL premix IVPB (COMPLETED) 2 g, Intravenous, Administer over 30 Minutes, OFFICE SERVICES CLERK TO PROCEDURE, 1 dose, Starting on Tue09/15/22 at 0627, Until Discontinued, Other, Pre-operative antibiotic, For 15 Minutes, Pre-op/Pre-Proc 0817 (Given - Provid er: Nazia Cantrell, STUDENT FINANCE SPECIALIST-LABOR RELATIONS WORKER) EPINEPHrine PF (ADRENALIN) 1 MG/ML 2 mg in Lactated ringers 5,000 mL irrigation solution NEEDED, Starting on Tue09/15/22 at 0840, Until Tue09/15/22 at 1308, Intra-op/Intra-Proc 0840 (Given - Provid er: Anna Reis MD) hydroCODone-acetaminophen (NORCO) 5-325 MG per tablet 1-2 tablet 1-2 tablet, Oral, EVERY 4 HOURS NEEDED, Starting on Tue09/15/22 at 0737, Until Tue09/15/22 at 1308, Moderate Pain, , Post-op/Post-Proc Lidocaine (XYLOCAINE) 10 mg/mL injection NEEDED, Starting on Tue09/15/22 at 0833, Until Tue09/15/22 at 1308, Intra-op/Intra-Proc 0833 (Given - Provid er: Anna Reis MD - Comment: given to sterile field mixed with 0.5% marcaine 50/50) Ondansetron 4mg/2ml (ZOFRAN) injection 4 mg 4 mg, Intravenous, EVERY 4 HOURS NEEDED, Starting on Tue09/15/22 at 0737, Until Tue09/15/22 at 1308, Nausea / Vomiting, Post-op/Post-Proc Scheduled Medication Order 05/09/2023 05/10/2023 05/11/2023 acetaminophen (Tylenol) tablet 975 mg 975 mg, oral, Once, On Tue05/11/23 at 1300, For 1 dose, Recovery (only), If ordered PRN for pain, nurse is permitted to administer this medication for higher pain scores based on patient preference? Yes 1300 (Due) ceFAZolin in dextrose (iso-os) (Ancef) IVPB 2 g (COMPLETED) 2 g, intravenous, Administer over 30 Minutes, Once, On Tue05/11/23 at 0830, For 1 dose, Preprocedure, Administer within 60 minutes prior to incision. premix bag, Dosing of this medication varies based on severity of illness. Does this patient have sepsis or concern for sepsis (probable or documented infection plus systemic manifestations of infection)? No, Suspected Indication (Select all that apply): Surgical Prophylaxis 1106 (Given - Provid er: CHENCHO Kendrick)1241 (Anesthesia Volume Adjustment - Provider: Latoya Aragon MD) oxygen (O2) therapy inhalation, Continuous - , First dose on Tue05/11/23 at 1300, Recovery (only), Device: Simple Face Mask, Rate in Liters per minute: 10 LPM, Keep O2 Sat Above: 92% 1300 (Due) Continuous Medication Order 05/09/2023 05/10/2023 05/11/2023 lactated Ringer's infusion 100 mL/hr, intravenous, Continuous, Starting on Tue05/11/23 at 1300, Recovery (only) 1300 (Due) PRN Medication Order 05/09/2023 05/10/2023 05/11/2023 acetaminophen (Tylenol) tablet 650 mg 650 mg, oral, Every 4 hours PRN, pain mild (1-3), first line, Starting on Tue05/11/23 at 1251, Recovery (only), When able to take oral medications., If ordered PRN for pain, nurse is permitted to administer this medication for higher pain scores based on patient preference? Yes albuterol 2.5 mg /3 mL (0.083 %) nebulizer solution 2.5 mg 2.5 mg, nebulization, Once as needed, wheezing, Starting on Tue05/11/23 at 1251, For 1 dose, Recovery (only) BUPivacaine HCl (Marcaine) 0.25 % (2.5 mg/mL) injection (CANCELED) As needed, Starting on Tue05/11/23 at 1211, Intraprocedure 1211 (Given - Provid er: Naheed Maxwell DO) hydrALAZINE (Apresoline) injection 5 mg 5 mg, intravenous, Administer over 2 Minutes, Every 30 min PRN, high blood pressure, systolic blood pressure greater than 180 mmHg and heart rate less than 60 BPM, Starting on Tue05/11/23 at 1251, For 2 doses, Recovery (only) HYDROcodone-acetaminophen ([place]) 5-325 mg per tablet 1 tablet 1 tablet, oral, Every 4 hours PRN, pain moderate (4-6), second line, Starting on Tue05/11/23 at 1251, Recovery (only), When able to take oral medications., If ordered PRN for pain, nurse is permitted to administer this medication for higher pain scores based on patient preference? Yes HYDROmorphone (Dilaudid) injection 0.1 mg 0.1 mg, intravenous, Every 5 min PRN, pain mild (1-3), first line, Starting on Tue05/11/23 at 1251, Recovery (only), Max total of 4 mg regardless of dose. HYDROmorphone (Dilaudid) injection 0.2 mg 0.2 mg, intravenous, Every 5 min PRN, pain moderate (4-6), first line, Starting on Tue05/11/23 at 1251, Recovery (only), Max total of 4 mg regardless of dose. HYDROmorphone (Dilaudid) injection 0.5 mg 0.5 mg, intravenous, Every 5 min PRN, pain severe (7-10), first line, Starting on Tue05/11/23 at 1251, Recovery (only), Max total of 4 mg regardless of dose. 1312 (Given - Provid er: Alice Moore RN) isosulfan blue (Lumphazurin) 1 % injection (CANCELED) As needed, Starting on Tue05/11/23 at 1100, Intraprocedure 1100 (Given - Provid er: Naheed Maxwell DO) midazolam (Versed) injection 1 mg 1 mg, intravenous, Once as needed, anxiety, Starting on Tue05/11/23 at 1251, For 1 dose, Recovery (only) ondansetron (Zofran) injection 4 mg 4 mg, intravenous, Once as needed, nausea/vomiting, first line, Starting on Tue05/11/23 at 1251, For 1 dose, Recovery (only), When administering via IV Push, administer over 3-5 minutes. oxyCODONE (Roxicodone) immediate release tablet 10 mg 10 mg, oral, Every 4 hours PRN, pain severe (7-10), second line, Starting on Tue05/11/23 at 1251, Recovery (only), When able to take oral medications., If ordered PRN for pain, nurse is permitted to administer this medication for higher pain scores based on patient preference? Yes prochlorperazine (Compazine) injection 5 mg 5 mg, intravenous, Once as needed, nausea/vomiting, third line, persistent post-op nausea/vomiting, Starting on Tue05/11/23 at 1251, For 1 dose, Recovery (only) promethazine (Phenergan) 6.25 mg in sodium chloride 0.9% 50 mL IV 6.25 mg, intravenous, Administer over 15 Minutes, Once as needed, Nausea/vomiting, second line, Starting on Tue05/11/23 at 1251, For 1 dose, Recovery (only) INFORMATION SOURCE (unrecogn ized section and content) DATE CREATED AUTHOR AUTHOR'S ORGANIZ ATION 10/09/2022 [employer] DATE CREATED AUTHOR AUTHOR'S ORGANIZ ATION 11/09/2022 [facility] DATE CREATED AUTHOR AUTHOR'S ORGANIZ ATION 02/23/2023 [facility] DATE CREATED AUTHOR AUTHOR'S ORGANIZ ATION 03/02/2023 [facility] DATE CREATED AUTHOR AUTHOR'S ORGANIZ ATION 05/02/2023 [facility] DATE CREATED AUTHOR AUTHOR'S ORGANIZ ATION 06/06/2023 [facility] DATE CREATED AUTHOR AUTHOR'S ORGANIZ ATION 06/10/2023 [facility] FOR RECORDS PERTAINING TO PATIENTS WHO ARE OR HAVE BEEN ENROLLED IN A CHEMICAL DEPENDENCY/SUBSTANCEABUSE PROGRAM, SOME INFORMATION MAY BE OMITTED. This clinical summary was aggregated from multiple sources. Caution should be exercised in using it in the provision of clinical care. This summary normalizes information from multiple sources, and as a consequence, information in this document may materially change the coding, format and clinical context of patient data. In addition, data may be omitted in some cases. CLINICAL DECISIONS SHOULD BE BASED ON THE PRIMARY CLINICAL RECORDS. [facility]. provides no warranty or guarantee of the accuracy or completeness of information in this document.
[2023-06-24 06:09] VITALS: BP 129/71; PULSE 64; RESP 18; TEMP 36.6; O2SAT 97; BMI 34.0
[2023-06-24] MEDS: Lactated Ringers 1,000 ML 15 ML IV (06:18)
[2023-06-24 06:55] LABS: Bedside Glucose 129 mg/dL (74-106)
--- NOTE | 2023-06-24 07:06 | PCM.HP.BLA ---
History and Physical Date of Admission: 06/24/23 Date of Service: 06/21/23 MR#: [id number] Acct: [id number] Name: DARIO VÁZQUEZ Rep #: [id number] : 1950 Provider: Dr. Lilliam Abdul MD Age/Sex: 72/F Location: [facility] Status: Signed Intake Vital Signs 06/14/2314:42 06/21/2313:14 Height 5 ft 3.5 in 5 ft 3 in Weight: 201 lb BMI 35.6 BP 105/78 Blood Pressure Location Rt brachial Position Sitting Respiration 17 Pulse 74 Pulse Source Monitor Temp 97 F L Temp Source Temporal Pulse Oximetry (%) 98 Oxygen Delivery Method room air Intake Visit Reasons: PORT PLACEMENT Chief Complaint: port placement Is patient in pain?: No Allergies adhesive tape Allergy (Severe, Verified 06/21/23 13:16) Hiveslatex Allergy (Severe, Verified 06/21/23 13:16) Hivescodeine Adverse Reaction (Severe, Verified 06/21/23 13:16) GI upset Medications acetaminophen 650 mg tablet,extended release 650 mg PO Q12H 06/09/23 [History Confirmed 06/21/23] atorvastatin 20 mg tablet 20 mg PO DAILY 06/09/23 [History Confirmed 06/21/23] cyanocobalamin (vitamin B-12) 1,000 mcg capsule 1,000 mcg PO DAILY 06/09/23 [History Confirmed 06/21/23] lisinopril 20 mg-hydrochlorothiazide 12.5 mg tablet 1 tab PO DAILY 06/09/23 [History Confirmed 06/21/23] pantoprazole 40 mg tablet,delayed release 40 mg PO DAILY 06/09/23 [History Confirmed 06/21/23] pioglitazone 15 mg tablet 15 mg PO DAILY 06/09/23 [History Confirmed 06/21/23] cholecalciferol (vitamin D3) 50 mcg (2,000 unit) capsule 50 mcg PO DAILY 06/14/23 [History Confirmed 06/21/23] PFSH Medical History Basal cell carcinoma Carcinoma of right breast Diabetes GERD (gastroesophageal reflux disease) Hiatal hernia Hyperlipemia Hypertension Normal colonoscopy Surgical History Hx of section Hx of cholecystectomy Hx of tonsillectomy Family History Unknown Breast cancer 2 cousinsAunt Breast cancerSister Cancer oralGrandmother Cancer lip ca CVA (cerebral vascular accident)Mother CVA (cerebral vascular accident) Heart diseaseFather Heart diseaseUncle Heart diseaseGrandfather Heart diseaseOther Diabetes Social History Smoking Status: Never smoker alcohol intake: current alcohol intake frequency: holidays/special occasions only substance use type: does not use what type of physical activity do you participate in: none HPI HPI HPI: 72-year-old female status post right breast lumpectomy and sentinel lymph node biopsy negative nodes?at , triple negative for port placement. Patient scheduled to start her chemotherapy on 06/29/2023. ROS General General: Yes breast cancer; No weight change, appetite, fatigue or colon cancer HEENT HEENT: No difficulty swallowing, eye injury, eye surgery, swollen glands or hoarseness Endo Endocrine: Yes diabetes mellitus; No thyroid disease, thyroid cancer, Hair loss, heat intolerance or cold intolerance Skin Skin: No rash or changing moles Musc Musculoskeletal: No back problems, arthritis, rheumatoid arthritis, gout or joint pain Cardio Cardiovascular: Yes high blood pressure; No murmur, pacemaker, heart disease, atrial fibrillation, heart attack, heart stent, palpitations, shortness of breat with exertion or chest pain Psych Psychiatric: No depression, anxiety or hearing voices Resp Respiratory: No shortness of breath, No sleep apnea, No cough, No COPD, No asthma, No emphysema and No wheezing Gastro Gastrointestinal: No abdominal pain, No nausea or vomiting, No diarrhea, No constipation, No blood in stool, Yes acid reflux, No hemorrhoids, No ulcers, No gallbladder problem and No black,tarry stools Eric Hematologic: No blood thinners, No blood disorders, No bleeding, No anemia and No blood clots Neuro Neurologic: No numbness and No tingling Exam Const General: cooperative, healthy appearing, comfortable and no acute distress [facility] Head: normocephalic and atraumatic Neck Neck: supple Chest Other: Palpation of bilateral upper chest normal Resp Effort & Inspection: normal respiratory effort Cardio Rate: regular rate GI Inspection: non-distended Skin General: no rashes or lesions noted Neuro General: CN's II-XI intact bilaterally Extrem General: normal to inspection Psych Mental Status: mental status grossly normal Attitude: cooperative Assessment and Plan Assessment and Plan (1) Encounter for insertion of venous access port: Status: Acute (2) Breast cancer: Status: Acute Qualifiers: Breast location: lower outer quadrant of breast Estrogen receptor status: negative Patient sex: female Laterality: right Qualified Code(s): C50.511 - Malignant neoplasm of lower-outer quadrant of right female breast; Z17.1 - Estrogen receptor negative status [ER-] Comment: Invasive ductal carcinoma, status post right lumpectomy and sentinel node biopsy, tumor size 5 mm, margins negative, grade 3, lymph nodes negative. Clinically anatomic stage IA(pathologic T1a pN0 M0). Triple negative. Discussed R breast cancer, stage I, triple negative, management with adjuvant chemotherapy vs observation, adjuvant Radiation therapy. Pt wants to do adjuvant chemotherapy. Plan I have discussed above with the patient- Port-a-Cath placement. Left IJ possible right Patient has been counseled as to the risks/benefits of the procedure. I have explained the risks of the surgery, including but not limited to: infection, bleeding, injury to any blood vessels/nerves, injury to lungs (such as pneumothorax or hemothorax and need for chest tube), not having any access, nonfunctioning of port due to thrombosis, infection of port, etc. the patient understands and agrees to proceed. I have answered all the patient's questions to the patient?s satisfaction and the patient has no further questions. Lilliam Abdul M.D. Pager: [phone] [facility] [address] [place] [address], [address] [place] [address] Office: [phone] Coding Level of Care Code Off vis,new,level 3 Diagnoses Encounter for insertion of venous access port Z45.2 Malignant neoplasm of lower-outer quadrant of right breast of female, estrogen receptor negative C50.511; Z17.1 Breast location: lower outer quadrant of breast Estrogen receptor status: negative Patient sex: female Laterality: right 06/21/23 1327 <Electronically signed by Lilliam Abdul MD> Date Lilliam Abdul MD
[2023-06-24] MEDS: Cefazolin 2 GM in 0.9% Normal Saline (100mL Bag) 100 ML IV (07:24)
[2023-06-24] MEDS: Bupivacaine Mpf 0.5% 30 ML VIAL (07:59)
[2023-06-24] MEDS: Lidocaine 1% /Epi 1:100 (20ml) 20 ML Vial (07:59)
--- NOTE | 2023-06-24 08:03 | PCM.OPRPT ---
Report of Operation Date of Procedure: 06/24/23 Pre-Operative Diagnosis: z45.2, right breast cancer Post-Operative Diagnosis: Same Surgery/Procedure Performed:: Insertion of right IJ Port-A-Cath Use of ultrasound Use of fluoroscopy Surgeon: Lilliam Abdul Type of Anesthesia: Local MAC Anesthesiologist: Carlton Morillo Special Medications: Ancef 2 g IV x 1 Specimen's removed: None Estimated Blood Loss (mL): < 10 cc Description of Procedure: After informed consent was given, the patient was brought to the operating room and placed in the supine position. Appropriate time out protocol was followed. Patient was then given IV conscious sedation for anesthesia. The patient's left upper chest and neck were then prepped with a surgical skin preparation and sterile surgical drapes were placed. After proper landmarks were ascertained, the skin at the upper left chest area was then infiltrated with 1:1 mixture of 1% lidocaine with epinephrine and 0.5% marcaine. A needle trocar was then inserted into the left internal jugular vein with ultrasound guidance-multiple vessels were viewed with u/s and the left IJ was chosen-- and there was good aspiration of venous blood. A wire was then threaded into the needle trocar and this was visualized under fluoroscopy to ensure that the wire was in the superior vena cava. Once this was done, then the needle trocar was removed. A small skin daija was made with an 11 blade knife at the wire entrance site. The dilator with the introducer sheath attached was then placed over the wire into the left internal jugular vein via the Seldinger technique and this was visualized under fluoroscopy. The dilator and sheath were in proper position as visualized by fluoroscopy. A subcutaneous pocket was then created caudad to the catheter insertion site. A transverse skin incision was made after the skin and subcutaneous tissues were infiltrated with local anesthetic. Blunt dissection was then used to create a space large enough for placement of the subcutaneous port. The catheter was then tunneled into the subcutaneous pocket. The wire and dilator were then removed. The catheter was then threaded into the introducer sheath and was positioned with its tip at the junction of the superior vena cava and the right atrium as visualized under fluoroscopy. The excess catheter was transected. The catheter was then attached to the subcutaneous port using manufacturers guidelines. The catheter was flushed with a heparin saline mixture prior to placement. Hemostasis was carefully controlled with electrocautery. The port was sutured to the subcutaneous fascia using 2-0 Vicryl suture at two sites. The port was then placed in the subcutaneous pocket. The incision were reapproximated with interrupted subdermal 3-0 vicryl sutures. The skin was reapproximated with 3-0 nylon suture in a interrupted fashion. Steristrips were used for reinforcement of the skin closure at IJ insertion site and a sterile opsite dressings were applied. The patient tolerated the procedure well. Grafts/Implants Used: [employer] PowerPort isp M.R.I. 8Fr Lot [id number] [id number] Complications none
--- NOTE | 2023-06-24 08:05 | DCINST_ITS ---
Discharge Instructions Procedure Port-A-Cath Diet Discharge Diet: Light diet - advance as tolerated Activity May shower in (days): 5 (Keep port site clean and dry x5 days. Neck incision okay to get wet after 1 day. Okay to lower shower and upper sponge bath. OR okay to taper off port site with a Ziploc bag to shower) Lifting Restrictions: No lifting > 15 pounds for 3 days with the arm on the side of the port Dressing / Incision Call your doctor if your incision/area has: Continuous Slow Oozing, Sudden Increased Bleeding, Increased Pain/ Swelling, Increased Redness, Foul Smelling Discharge and Swelling at the incision site Call your doctor if you observe: Fever of 101 or Higher Change Dressing in: 2 days (2-3 days- port site; ok to remove neck opsite in 1 day) Follow Up Care Please Follow Up With: Lilliam Abdul MD When: In 10 days for permanent suture removal?call office for appointment Test Results: Test results from this visit will be discussed in further detail at your follow- up appointment, if applicable. Discharge Plan Admission Attending Provider: Lilliam Abdul Primary Care Provider: Robby Elizabeth Discharge Orders/Prescriptions Prescriptions: Continued cholecalciferol (vitamin D3) 50 mcg (2,000 unit) capsule 50 mcg PO DAILY acetaminophen 650 mg tablet extended release 650 mg PO Q12H PRN (Reason: pain) atorvastatin 20 mg tablet 20 mg PO DAILY cyanocobalamin (vitamin B-12) 1,000 mcg capsule 1,000 mcg PO DAILY lisinopril-hydrochlorothiazide 20-12.5 mg tablet 1 tab PO DAILY pantoprazole 40 mg tablet,delayed release (DR/EC) 40 mg PO DAILY pioglitazone 15 mg tablet 15 mg PO DAILY lidocaine-prilocaine 2.5-2.5 % cream 1 applic topical ONCE PRN (Reason: Port access) 30 Days Qty: 30 2RF ondansetron 8 mg tablet,disintegrating 8 mg PO Q8H PRN (Reason: nausea and vomiting) Qty: 30 2RF dexamethasone 4 mg tablet 8 mg PO .COMPLEX Qty: 12 3RF Rx Instructions: 8 mg orally twice ONLY the day before, the day of, and the day after chemotherapy; C Complex 1,000 mg tablet extended release 1,000 mg PO DAILY Referrals / Follow Up: Robby Elizabeth MD [Primary Care Provider] - Disposition Disposition (needs filled in before D/C Order can be placed): Home, Self Care
[2023-06-24 08:10] VITALS: BP 114/75; BP 129/71; PULSE 82; RESP 16; TEMP 36.6; O2SAT 97
[2023-06-24 08:15] VITALS: BP 120/95; BP 129/71; PULSE 81; RESP 16; O2SAT 99
--- NOTE | 2023-06-24 08:15 | RAD_ITS ---
STUDY: X-RAY CHEST REASON FOR EXAM: Female, 72 years old. Port -- pacu TECHNIQUE: Single AP portable view of the chest. COMPARISON: None. FINDINGS: Port on the left extends to the cavoatrial junction. The lungs are clear and expanded. There is no demonstrated pleural abnormality. Normal size heart. There is a large retrocardiac hiatal hernia. Normal visualized pulmonary arteries. There is atherosclerotic calcification of the aortic arch. Normal visualized thoracic spine. Normal visualized ribs, clavicles, and shoulders. There is no demonstrated abnormality of the visualized soft tissue structures of the upper abdomen. RAD/Chest 1 View (Portable) IMPRESSION: Port placement. Hiatal hernia. Electronically Signed: Shayan Austin MD at 9:50 EST ,
[2023-06-24 08:25] VITALS: BP 125/68; BP 129/71; PULSE 74; RESP 18; TEMP 36.6; O2SAT 97
[2023-06-24 09:18] VITALS: BP 129/71
== END 2023-06-24 09:34 | disposition home or self-care (01) ==
LOC: SDC 05:44 → AC 05:45
PROVIDERS: PCP Family Medicine; Referring Provider Surgery; Visit Provider Surgery
PROC: (CPT 36561; principal; 2023-06-24 07:15)
DX: Z45.2 Encounter for adjustment and management of vascular access device (principal); C50.511 Malignant neoplasm of lower-outer quadrant of right female breast; E11.9 Type 2 diabetes mellitus without complications; Z79.84 Long term (current) use of oral hypoglycemic drugs; E78.5 Hyperlipidemia, unspecified; I10 Essential (primary) hypertension; Z80.3 Family history of malignant neoplasm of breast; Z17.1 Estrogen receptor negative status [ER-]; K21.9 Gastro-esophageal reflux disease without esophagitis
CPT/HCPCS: 36561; 00532; 71045; 77001; 82962; J7120; C1788; J2405

== ENCOUNTER 2024-09-20 12:58 | Outpatient (CLI) | payer MEDICARE, SELFPAY ==
[2024-09-20 14:26] LABS: Hemoglobin 13.3 g/dL (12.0-15.0); Mean Corp Hgb Conc 34.1 g/dL (32-36); Mean Corpuscular Hgb 34.1 pg (27.0-32.0); Mean Platelet Vol. 11.5 fl (6.2-12.0); Platelet Count 155 K/mm3 (150-450); RBC Distribution Width CV 12.9 % (11.6-14.6); RBC Distribution Width SD 47.6 fl (35.1-43.9); White Blood Count 6.3 K/mm3 (4.4-11.0)
[2024-09-20 15:12] LABS: Anion Gap 15 (5-15); BUN 25 mg/dL (4-19); BUN/Creat Ratio 29.7 RATIO (10-20); Calcium,Total 9.1 mg/dL (7.6-11.0); Carbon Dioxide 20.7 mmol/L (21.0-32.0); Chloride 105 mmol/L (98-108); Creatinine, Serum 0.83 mg/dL (0.70-1.20); EST Glomerular Filtration Rate 75 (>60); Glucose 110 mg/dL (70-99); Potassium 3.9 mmol/L (3.3-5.1); Sodium Level 141 mmol/L (133-145)
[2024-09-20 18:37] LABS: Cholesterol 169 mg/dL (<=200); High Density Lipoprotein 72 mg/dL; Low Density Lipoprotein Calc. 84 mg/dL; Triglycerides 67 mg/dL; Very Low Density Lipoprotein 13 mg/dL (5-40); cholesterol:hdl ratio screen 2.36
[2024-09-20 19:05] LABS: Hemoglobin A1c 6.9 % (<=5.6)
[2024-09-20 22:22] LABS: Xtra Tube EP Lab EXTRA TUBE
== END 2024-09-20 23:59 | disposition home or self-care (01) ==
LOC: MEDOUTP 12:59
PROVIDERS: PCP Family Medicine; Referring Provider Family Medicine; Visit Provider Family Medicine
DX: E11.9 Type 2 diabetes mellitus without complications (principal)
CPT/HCPCS: 36591; 80048; 80061; 83036; 85027; A4216

== ENCOUNTER 2024-10-08 11:30 | Outpatient (RCR) | payer MEDICARE, SELFPAY ==
--- NOTE | 2024-09-05 10:40 | HP.SP.EVAL ---
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: [employer] History Attending Doctor: Referring Doctor: Reason for Referral: COGNITIVE - LINGUISTIC/RX SCANNED IN Medical Diagnosis: Other general signs and symptoms R68.89 Date of Onset of Diagnosis: 08/01/2024 Previous speech therapy: No Other Relevant Medical History/Diagnoses/Surgery: PMH: Forgetfulness, Dehydration, Hypokalemia, Wears glasses, Bladder disease, Arthritis, Anemia, Migraine headache, Dietary restriction, Difficulty swallowing, History of IBS, SOB on exertion, Vertigo, Basal cell carcinoma, Diabetes, Hiatal hernia, GERD, HTN, HLD, Carcinoma of right breast (s/p right breast lumpectomy 05/11/2023, chemotherapy 07/13/2023 ? 09/14/2023, and radiation treatment 10/24/2023 ? 11/10/2023). The patient was referred for cognitive-linguistic evaluation by CUTTER AND PRESSER, Ashley Ochoa, following oncology office visit due to patient concerns for ongoing brain fog, forgetfulness, and mild expressive aphasia. Smoking Status: Never smoker Pain Is pain an issue with your current prescribed condition?: No Personal Preferred language: Mac[place] Patient Allergies Allergies Allergies: Allergies adhesive tape Allergy (Severe, Verified 09/04/24 13:35) Hives latex Allergy (Severe, Verified 09/04/24 13:35) Hives codeine Adverse Reaction (Severe, Verified 09/04/24 13:35) GI upset Subjective Cog/Ling/Com Subjective Cognitive/Linguistic/Communication: The patient reports concerns for worsening cognition just prior to her cancer treatments with worsening cognitive difficulties since chemotherapy treatment last year. She reports difficulty w/ concentration, remembering people's names, forgetfulness, and word finding. Of note, patient was most concerned about her cognitive difficulty when recently she set eggs on the stove to boil and forgot for so long that the pot boiled out of water and the eggs burned in the pot., which concerned the patient for her forgetfulness giving her safety concerns. The patient also informed OUTSEWER that she has been very stressed lately. 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 She also cares for her elderly mother who lives in [facility]; however, the patient provides her mother transportation to all of her appts and outings, and she manages her mother's finances and medications. Reference: Neuro-QoL instrument Radiation Oncology Patient Other Other Cognitive-Linguistic Quick Test (CLQT): -: The Cognitive-Linguistic Quick Test (CLQT) was administered on this date. It is a standardized assessment for individuals ages 18-89 to examine assess strengths and weaknesses in five cognitive domains: attention, memory, executive functions, language, and visuospatial skills. The quantitative results are as follows: Subtest Scores ?Personal Facts (memory and language ability): 02/01 ?Symbol Cancellation (nonlinguistic task of visual attention and perception, integrity of the upper/lower quadrants of the left/right visual apodaca): 06/07 ?Confrontation Naming (aphasia, perseveration, verbosity): 04/05 ?Clock Drawing (screening of all cognitive domains): ?Story Retelling (memory and comprehension, arousal, attention, storage capacity, narrative skills): 02/03 ?Symbol Trails (nonlinguistic task to assess planning, self-monitoring, working memory, and visual attention, and impulsivity): 04/05 ?Generative Naming (word retrieval skills, perseveration): 01/02 ?Design Memory (nonlinguistic task to assess visual discrimination & analysis, attention, and visual memory, impulsivity, perseveration): 11/30 ?Mazes (planning, mental flexibility, self-monitoring, visual discrimination, and impulsivity): 02/01 ?Design Generation (nonlinguistic task of creativity and mental flexibility): 11/06 Cognitive Domain Scores: (70-89 y.o. norms) Attention - 203 (WNL = 215-160) ? WNL Memory -171 (WNL = 185-141) ? WNL Language - 33 (WNL = 40-28) ? WNL Executive Functions - 73 (WNL = 40-19) ? WNL Visuospatial Skills - 32 (WNL = 105-62) ? 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 Will recommend the patient for cognitive-linguistic OP speech therapy POC. Plan Plan Plan: Will recommend the patient for cognitive-linguistic OP speech therapy POC due to concerns for mild cognitive impairment impacting patient safety in the home environment. She would benefit from training in internal and external memory strategies, as well as implementation of cognitive training activities to improve attention, word retrieval, and memory. Will also recommend continued cognitive-linguistic assessment in the areas of executive functioning as the patient completes high level cognitive tasks at home (medication and finance management). This OUTSEWER is also contacting the oncology resource advocate re: patient resources for caregiver support. Recommendations Treatment Warranted: Yes Treatment Warranted: Receptive/ Expressive Language and Cognition Progress Prognosis: Good Frequency Frequency: 1x/Week Duration: 2-4 Months Goals that are Established Determination:: Goals will be added/modified as deemed necessary and appropriate. Therapy will be discontinued when results of re-evaluation indicate therapy is no longer needed or lack of progress has been documented. Goal #1-5 Goal #1: The patient will participate in additional cognitive-linguistic assessment to set additional goals as needed to POC (executive functioning). Goal #2: The patient will complete alternating/divided attention tasks with 90% accuracy with minimal verbal cues to promote safe and accurate completion of ADLs. Goal #3: The patient will demonstrate delayed auditory recall of novel information with 90% accuracy with 15-30 min delay provided minimal verbal cues for use of compensatory strategies. Goal #4: The patient will demonstrate use or verbalize awareness of compensatory strategies to improve recall with minimal verbal cues. Goal #5: The patient will demonstrate use or verbalize awareness of compensatory strategies to improve word retrieval in complex conversation with minimal verbal cues. Education Patient has Indicated that the Following Other Educational Needs: Some visual deficits from past eye surgeries The Patient has indicated that they have no educational or learning abilities that may effect their care.: No Patient Instruction Patient Education: Diagnosis, Treatment Plan and Goals Person Taught: Patient Teaching Method: Discussion and Handout Response to teaching: Verbalize Understanding and Reinforcement Needed
--- NOTE | 2024-10-08 14:02 | HP.SP.DC ---
ST Discharge Summary Discharged: Discharge: The patient participated in a cognitive-linguistic evaluation 09/05/2024 and she attended 5 follow-up sessions. The patient verbalized today that she feels she has learned adequate strategies that she is now applying at home to improve recall and word retrieval. She has identified that stress causes her increased difficulty w/ word finding and recall and she is working to manage her stress. No patient or REGIONAL ACCOUNT EXECUTIVE concerns for impaired safety awareness in the home at this time. The patient is politely declining re-evaluation of cognition in upcoming sessions and does not feel she needs additional therapy. The patient will be discharged from at this time.
== END 2024-10-08 19:00 | disposition home or self-care (01) ==
LOC: SP 11:30
PROVIDERS: PCP Family Medicine; Referring Provider Student in an Organized Health Care Education/Training Program; Visit Provider Student in an Organized Health Care Education/Training Program
DX: R68.89 Other general symptoms and signs (principal); F80.1 Expressive language disorder
CPT/HCPCS: 92507; 92523

== ENCOUNTER → 2024-11-07 | Outpatient (CLI) | payer MEDICARE, SELFPAY ==
--- NOTE | 2024-11-07 09:51 | NM_ITS ---
PROCEDURE: BONE SCAN WHOLE BODY 11/07/2024 REASON FOR EXAM: ABNORMAL CT. TECHNIQUE: Whole-body delayed phase imaging of the after radiopharmaceutical administration RADIOPHARMACEUTICAL: 25 mCi Technetium-99m MDP IV (through port) COMPARISON: CORRELATION WITH EXISTING RELEVANT IMAGING STUDIES (i.e. x-ray, MRI, CT, etc.): Prior images are not available for comparison. FINDINGS: Increased uptake of the distal left 1st rib is seen, likely posttraumatic in nature. Degenerative changes are seen of the bilateral acromioclavicular joints ([id number]), bilateral sternoclavicular joints, bilateral 1st carpal-metacarpal joints (left worse than right), bilateral knees, bilateral ankles, and probably also with bilateral elbows. Degenerative changes are seen throughout the spine. No findings are seen to suggest the presence of osseous metastatic disease. NM/Bone Scan Whole Body IMPRESSION: No scintigraphic evidence of osseous metastatic disease. Reading Location: [place] [id number]
[2024-11-07] MEDS: 0.9% Saline Lock 10 ML Syringe IV ×2 (10:00→10:10)
[2024-11-07] MEDS: 0.9 % NaCl (Sterile) Posiflush 10 mL IV (10:00)
== END | disposition home or self-care (01) ==
LOC: NM 09:48
PROVIDERS: PCP Family Medicine; Referring Provider Internal Medicine Medical Oncology; Visit Provider Internal Medicine Medical Oncology
DX: C50.511 Malignant neoplasm of lower-outer quadrant of right female breast (principal); Z17.1 Estrogen receptor negative status [ER-]; R93.89 Abnormal findings on diagnostic imaging of other specified body structures
CPT/HCPCS: 78306; A9503; A4216

== ENCOUNTER → 2025-05-09 | Outpatient (CLI) | payer MEDICARE, SELFPAY ==
--- NOTE | 2025-05-09 14:30 | BI_ITS ---
EXAM: SCRN MAMM (CAD)W/CANDIDA BILAT DATE: 05/09/2025 CLINICAL HISTORY: F, Age 74 y/o , ANNUAL SCREENING, TREATED BREAST CANCER TECHNIQUE: Procedure Code: [id number] Modality: MG Procedure: SCRN MAMM (CAD)W/CANDIDA BILAT COMPARISON: Prior exam(s) were compared FINDINGS: TISSUE DENSITY: The breasts are heterogeneously dense, which may obscure small masses. Bilateral Breast Mammographic Findings: No significant masses, calcifications or other abnormalities are identified. BI/SCRN MAMM (CAD)W/CANDIDA BILAT IMPRESSION: No mammographic evidence of malignancy in either breast. OVERALL FINAL ASSESSMENT BI-RADS 1: NEGATIVE. RECOMMENDATION: Routine annual follow-up in 1 Year Additional Recommendation none A letter with findings and recommendations will be mailed to the patient. Reading Location: [id number]
== END | disposition home or self-care (01) ==
LOC: OPBI 14:17
PROVIDERS: PCP Family Medicine; Referring Provider Student in an Organized Health Care Education/Training Program; Visit Provider Student in an Organized Health Care Education/Training Program
DX: Z12.31 Encounter for screening mammogram for malignant neoplasm of breast (principal)
CPT/HCPCS: 77063; 77067